=== PATIENT | male | born 1945 | race Caucasian/White ===

== ENCOUNTER 2018-09-26 05:46 | Inpatient (IN) ==
[2018-09-26] MEDS ORDERED: Lactated Ringers 2,000 ML PRIMARY IV ONE ×2 (05:54→18:50)
[2018-09-26] MEDS ORDERED: Vancomycin Inj 1gm vial ONE ×2 (05:54→06:42)
[2018-09-26] MEDS ORDERED: ceFAZolin Inj 2gm (Premix) 0 GM/0 ML BAG IV ONE (05:54)
[2018-09-26] MEDS ORDERED: Sodium Chloride 0.9% 250 ML ONE ×2 (05:56→07:08)
[2018-09-26] MEDS ORDERED: LIDOCAINE W/ SODIUM BICARB 0.5 ML SYR SUBD ONE (06:00)
[2018-09-26] MEDS ORDERED: ceFAZolin Inj 2gm (Premix) 2 GM/50 ML BAG IV ONE (06:00)
[2018-09-26] MEDS ORDERED: Nasal Sanitizer POPSWAB ampule 3 AMP (Nozin) PREOP DOSE ENOS SCH (06:00)
[2018-09-26] MEDS ORDERED: BACITRACIN 50,000 UNIT VIAL IRRIG ONE ×2 (06:42→13:15)
[2018-09-26] MEDS ORDERED: Sodium Chloride 0.9% vial 50 ML ONE (06:42)
[2018-09-26] MEDS ORDERED: Gentamicin Inj 40 MG/ML VIAL ONE (06:42)
[2018-09-26] MEDS ORDERED: HYDROmorphone 2 MG/1 ML ONE ×3 (06:43→14:19)
[2018-09-26] MEDS ORDERED: REMIFENTANIL HCL 2 MG VIAL IV ONE ×4 (06:43→13:44)
[2018-09-26] MEDS ORDERED: MIDAZOLAM 5 MG/1 ML ONE (06:43)
[2018-09-26] MEDS ORDERED: fentaNYL Inj 250 MCG/5 ML VIAL ONE (06:43)
[2018-09-26] MEDS ORDERED: Propofol 1,000 MG/100 ML VIAL IV ONE ×8 (06:45→16:58)
[2018-09-26] MEDS ORDERED: LIDOCAINE MPF 2% - 5 ML (20 MG/1 ML) ONE (06:45)
[2018-09-26] MEDS ORDERED: KETAMINE 100 MG/1 ML - 5 ML ONE (06:45)
[2018-09-26] MEDS ORDERED: ROCURONIUM 10 MG/1 ML - 5 ML VIAL IVP ONE (06:46)
[2018-09-26] MEDS: Lactated Ringers 1,000 ML PRIMARY IV ONE ×2 (06:48→06:50)
[2018-09-26] MEDS ORDERED: Sodium Chloride 0.9% vial 20 ML ONE (06:57)
[2018-09-26] MEDS ORDERED: ePHEDrine Inj 50 MG/ML AMP ONE (06:57)
[2018-09-26] MEDS ORDERED: BUPIVACAINE 0.25% W/ EPI - 10 ML VIAL ONE (06:57)
[2018-09-26] MEDS ORDERED: [UNRECOGNIZED DRUG - OTHER] EACH EYE PRN (07:08)
[2018-09-26] MEDS ORDERED: FAMOTIDINE 20 MG/2 ML VIAL IVP ONE (07:33)
[2018-09-26] MEDS ORDERED: CITRIC ACID/SODIUM CITRATE 30 ML CUP PO ONE (07:33)
[2018-09-26] MEDS ORDERED: Acetaminophen 1000mg Inj 1,000 MG/100 ML VIAL IV ONE (07:36)
[2018-09-26] MEDS ORDERED: ceFAZolin Inj 3 GM in Sodium Chloride 0.9% 100 ML IV ONE (07:45)
[2018-09-26] MEDS ORDERED: LIDOCAINE HCL 2 % 10 ML JELLY URO-JECT TOPICAL ONE ×2 (07:54→09:04)
[2018-09-26] MEDS ORDERED: GLYCOPYRROLATE 0.2 MG/1 ML VIAL ONE (08:23)
[2018-09-26] MEDS ORDERED: Lactated Ringers 1,000 ML PRIMARY IV ONE ×5 (08:35→21:19)
[2018-09-26] MEDS ORDERED: ceFAZolin 1 GM VIAL ONE ×2 (11:15→17:26)
[2018-09-26] MEDS ORDERED: Sodium Chloride 0.9% 500 ML ONE ×2 (11:16→12:49)
[2018-09-26] MEDS ORDERED: Sodium Chloride 0.9% 0 ML PRIMARY IV ONE (11:27)
[2018-09-26] MEDS ORDERED: Sodium Chloride 0.9% vial 30 ML ONE (13:15)
[2018-09-26] MEDS ORDERED: DEXAMETHASONE PF 10 MG/1 ML VIAL ONE (14:27)
[2018-09-26] MEDS ORDERED: PROPOFOL 10 MG/1 ML (200 MG/20 ML) VIAL IV ONE ×3 (19:03→20:31)
[2018-09-26] MEDS ORDERED: BUPivacaine Inj 0.25% PF - 10ml vial ONE (19:27)
[2018-09-26] MEDS ORDERED: BUPivacaine Liposome/PF (Exparel) Inj 20ml vial INFIL ONE (19:27)
--- NOTE | 2018-09-26 21:08 | GEN.OPNOTE ---
Operative Note Surgery Date: 09/26/18 Preoperative Diagnosis: 1.) Chronic severe low back pain. 2.) Symptomatic lumbar stenosis/neurogenic claudication. 3.) Multilevel advanced lumbar degenerative disc disease. 4.) Multilevel advanced lumbar facet arthropathy/hypertrophy. 5.) Severe central canal stenosis L5-S1. 6.) Severe bilateral lateral recess stenosis L5-S1. 7.) Severe bilateral neuroforaminal stenosis L5-S1. 8.) S/P L3-4 and L4-5 anterior lumbar interbody fusion. Postoperative Diagnosis: 1.) Chronic severe low back pain. 2.) Symptomatic lumbar stenosis/neurogenic claudication. 3.) Multilevel advanced lumbar degenerative disc disease. 4.) Multilevel advanced lumbar facet ar thropathy/hypertrophy. 5.) Severe central canal stenosis L5-S1. 6.) Severe bilateral lateral recess stenosis L5-S1. 7.) Severe bilateral neuroforaminal stenosis L5-S1. 8.) Extruded synovium L5-S1 bilaterally. 9.) S/P L3-4 and L4-5 anterior lumbar interbody fusion. Procedure: 1.) Partial L5 laminectomy with medial facectomies and foraminotomies bilaterally for decompression of severe central canal, lateral recess, and neuroforaminal stenosis. (CPT code: 98971). 2.) Partial S1 laminectomy with medial facetectomies and foraminotomies bilaterally for decompression of severe central canal, lateral recess, and neuroforaminal stenosis. (CPT code: 85462). 3.) Posterolateral arthrodesis, T10-T11 bilaterally in preparation for posterolateral fusion. (CPT code: 01016). 4.) Posterolateral arthrodesis, T11- T12 bilaterally in preparation for posterolateral fusion. (CPT code: 70819). 5.) Posterolateral arthrodesis, T12-L1 bilaterally in preparation for posterolat eral fusion. (CPT code: 29977). 6.) Posterolateral arthrodesis, L1-2 bilaterally in preparation for posterolateral fusion. (CPT code: 63225). 7.) Posterolateral arthrodesis, L2-3 bilaterally in preparation for posterolateral fusion. (CPT code: 26860). 8.) Posterolateral arthrodesis, L3-4 bilaterally in preparation for posterolateral fusion. (CPT code: 928373). 9.) Posterolateral arthrodesis, L4-5 bilaterally in preparation for posterolateral fusion. (CPT code: 95838). 10.) Posterolateral arthrodesis, L5-S1 bilaterally in preparation for posterolateral fusion. (CPT code: 30510). 11.) Segmental instrumentation, T10-S1 using Shorty Alo 3 pedicle screw and shelia posterolateral thoracic/lumbar instrumentation system. (CPT code: 97032). 12.) Use of two medium [employer] INFUSE bone morphogenic protein (allograft), 60 cc of [employer] BIO DBM Plus putty with cancellous (allograft), 120 cc of cancellous bone chips (allograft) for posterolateral fusion. (CPT code: 38314). 13.) Use of autograft, harvested from the same incision, cleaned of soft tissue and morselized for posterolateral fusion. (CPT code: 23356). 14.) Use of the [employer] computer assisted neuronavigation system for the cannulization of the T10, T11, T12, L2, L3, L4, L5, and S1 pedicles bilaterally for the subsequent placement of the pedicle screws at these levels. (CPT code: 49900). 15.) Use of intra-operative fluoroscopy for confirmation of correct surgical levels and for final confirmation of the position of the posterolateral hardware elements. 16.) Use of intra-operative neuromonitoring including free running EMG's, triggered EMG's, and SSEP's. Surgeon: Sherif Spencer MD Assistant Farm Operations Manager: ROGELIO Ray Anesthesia Provider: Alta Malik CRNA Anesthesia Type: General Estimated Blood Loss (mL): 1,800 Fluids: See anesthesia record Pathology: None Indications: Mr. Zuniga is a 73-year-old gentleman, patient well-known to me, who underwent an L3-4 and L4-5 anterior lumbar interbody fusion. He was to undergo in a staged fashion, several days later, a T10 to S1/ilial fusion, however, this procedure was never performed because Mr. Zuniga developed a postoperative infection with a draining seroma from his anterior surgery and then developed a pulmonary embolus without DVT, which required him to be anticoagulated for a full year. More recently, Mr. Zuniga has presented to my new [facility] practice wishing to proceed with the second portion of that procedure, the T10-S1/ilial fusion. Mr. Zuniga continues to have the significant back pain, constant 7/10 with symptoms of neurogenic claudication but without radicular symptoms. He had a previous lumbar myelogram with post-myelogram CT as well as a more recent study that demonstrated severe multillevel lumbar degenerative disc disease with multilevel advanced facet arthropathy and hypertrophy. The studies demonstrated bilateral pars defects at L5-S1, with vertebral body slip at this level and severe central canal, bilateral lateral recess, and bilateral neuroforaminal stenosis. Findings: 1.) Severe L5-S1 central canal stenosis secondary. 2.) Severe L5-S1 lateral recess stenosis bilaterally. 3.) Severe L5-S1 neuroforaminal stenosis bilaterally. 4.) Loose right superior S1 articulating facet. 5.) Extruded synovium L5-S1 bilaterally. Complications: None Operative Summary: Mr. Zuniga was brought back to the preoperative area. His surgical history and physical was updated. The procedure to be performed was confirmed with Mr. Zuniga and we were in agreement on the procedure to be performed and this matched what was written on the patient's consent form. Any questions that Mr. Zuniga and his or his brother had were answered before he was taken back to the operating room suite. Mr. Zuniga was brought back to the operating room suite. He was put under general anesthesia and intubated by the anesthesia staff. He had a Carter catheter placed in his bladder for the procedure. He had pneumatic compression hose placed on his lower legs bilaterally. Mr. Hurd was carefully rolled over onto the Ralph surgical table with his arms gently positioned upwards with his shoulders abducted less than 90. HIs arms were padded with foam padding on top of the padding the surgical armboards. The region of his chest and axilla was checked bilaterally to make sure that there were no pressure points over the region of the brachial plexus bilaterally. His nipples were checked be below the chest pad of the Ralph table with no pressure points. All bony prominences were well padded. His Carter catheter was checked be free from kinks. His pneumatic compression hose was attached and pneumatic compression device. The C-arm fluoroscopy unit was used to help localize the skin incision for the approach to the intended surgical levels. The intended skin incision was marked with a skin marker with several crosshatches. Mr. Hurd was prepped and draped in the usual and standard fashion. He was given 3 g of Ancef and a gram of vancomycin IV for perioperative antibiosis. He was given 10 mg of Decadron IV. A standard surgical timeout was performed identifying the correct patient, the patient's symptoms, the correct procedure, and the correct equipment being available for the procedure. The intended skin incision was injected subcutaneously cutaneously with quarter percent Marcaine with 1 in 200,000 epinephrine. The skin was incised with a 10 blade scalpel and all dermal and superficial bleeding points were coagulated with bipolar cautery. Dissection was continued through the subcutaneous tissue down to the thoracolumbosacral fascia. The subcutaneous fatty tissue was dissected back, lateral from the midline, to assist with the identification of the fascial layer for closure portion of the procedure. The fascia was incised along the borders of the spinous processes with Bovie cautery and subperiosteal dissection was performed down the spinous processes and out over the lamina. When the inferior aspect of a lumbar lamina was identified a Canton 4 instrument was placed underneath the lamina and the level was localized with lateral fluoroscopy. Continued subperiosteal dissection was performed exposing from the inferior aspect of the T9 lamina to the sacrum bilaterally. Dissection was taken out laterally over the facet joints at each level and out laterally over the transverse processes from T10-L5 and out laterally over the sacral alar bilaterally. The soft tissue was dissected from the posterior aspect of the spine using the Bovie cautery and a large Leksell rongeur rongeur. Extensive decortication was performed of the T10-L5 lamina, facet joints, and T10-L5 tranverse processes, and the sacrum and sacral alar bilaterally using the high speed [employer] Oscar drill with a matchstick bit. The bone dust created was collected and saved to be used as autograft for the fusion portion of the procedure. The [employer] navigation reference arc was then securely attached to the L3 spinous process and a spin was performed with the [facility] 3-D fluoroscopy unit. The Dojo neuro navigation pedicle finder was then used to cannulate the T11,T12, and L2 levels bilaterally. Several careful attempts were made to cannulate the L1 pedicles with the Dojo neuro navigation pedicle finder, however due to the very small size of this pedicle based on imaging, and it was found to be sclerotic and trying to cannulate the pedicle after drilling a aerial applicator pilot hole using neuro navigation guidance, it was felt that further attempts to cannulate the pedicle would only fracture the pedicle or result in potential dural or nerve root injury. Therefore was decided not to proceed with further attempts to cannulate the pedicle in an attempt to place a pedicle screw at this level. The internal aspects of the T11,T12, and L2 pedicles were palpated internally with a small ball-tip instrument. The pedicles of T11 and L2 were known to be quite small so these pedicles were not tapped, but the T12 pedicle being somewhat larger was tapped with a Alo 3 4.5 mm tap bilaterally. The internal aspect of the T12 pedicles were palpated again with a small ball-tip instrument. The pedicle screws were then placed. 4.5 x 45 mm pedicle screws were placed into the T11 and L2 pedicles bilaterally. 5.5 x 55 millimeter pedicle screws were placed into the T12 pedicles bilaterally. The pedicle screws obtained good purchase in the pedicle and vertebral body bone at each level bilaterally. Another spin was performed with the 3-D fluoroscopy unit to localize the T10 pedicles with reference to the Dojo neuro navigation reference arc such that these pedicles could be cannulated with computer-assisted guidance. The Dojo neuro navigation pedicle finder was then used to cannulate the T10 pedicles bilaterally. The internal aspect of the pedicles were palpated with a small ball-tip instrument. The T10 pedicles, like the T12 pedicles, were somewhat larger and therefore they were tapped with the Shorty Alo 3 4.5 mm tap. The internal aspect of the T10 pedicles were palpated with the small-tip instrument. 5.5 x 55 mm pedicle screws were placed into the T10 pedicles bilaterally. The pedicle screws obtained good purchase in the pedicle and vertebral body bone bilaterally. All pedicle screws placed to this point interrogated with triggered EMGs. The high impedance of the pedicle screws that were not in close proximity to nerve structures. The placement of the T11, T12, and L2 pedicle screws were confirmed with the spin that had been performed to cannulate the T10 pedicles. The pedicle screws were demonstrated to be within the confines of the pedicles at each level and tho be bicortical or nearly bicortical in placement as intended. The placement of the T10 pedicle screws were confirmed with another spin with the 3D fluoroscopy unit. The [place] neuronavigation reference arc was placed on the spinous process of T12 and another spin was performed with the 3D fluoroscopy unit. The pedicles of L3, L4, L5 and S1 were then cannulated with the [place] neuronavigation pedicle finder. The internal aspects of the pedicles were palpated with a small ball tip instrument. The pedicles were all tapped with the appropriate size [employer] Alo 3 pedicle tap. The internal aspect of the pedicles were again palpated with a small ball tip instrument. The pedicle screws were then placed. 6.5 x 65 mm pedicle screws were placed into the L3 pedicles bilaterally. A 6.5 x 60 mm pedicle screw was placed into the L4 pedicle on the left and a 6.5 x 55 mm pedicle screw was placed into the L4 pedicle on the right. A 6.5 x 65 mm pedicle screw was placed into the L5 pedicle on the left, and a 6.5 x 55 mm pedicle screw was placed into the L5 pedicle on the right. An 8.5 x 60 mm pedicle screw was placed into the S1 pedicle on the left and a 7.5 x 60 mm pedicle screw was placed into the S1 pedicle on the right. The pedicle screws obtained good purchase in the pedicle and vertebral body bone at each level. The pedicle screws were all interrogated with triggered EMG's and all demonstrated sufficiently high impedance indicating that the were not in close proximity to nerve structures. Another spin with the 3D fluoroscopy unit confirmed that the pedicles were within the confines of the pedicles at each level and that they were either bicortical or nearly bicortical in purchase as intended. At this point, it was decided to not place iliac bolts as the screws at the S1 level were quite robust and had excellent purchase. It was felt that the risks of further anesthesia time and blood loss with an already extensive surgery outweighed any potential benefit from the additional purchase to the ilium as again excellent purchase was obtained in the sacrum with large diameter, long pedicle screws, with bilateral cortical purchase. Attention was turned to the decompression at L5-S1. Partial laminectomies of L5 and S1 were performed with medial facetectomies and foraminotomies bilaterally. Surgical findings included severe central canal and severe bilateral lateral recess and neuroforaminal stenosis secondary to extreme bony arthropathy and hypertrophy of the facet joints and thickening of the ligamentum flavum. The superior articulating facet of S1 on the right was found to be loss from bony attachment but heavily tethered in the canal adjacent and adherent to the dura from extruded synovium and fibrous tissue. There was extruded synovial tissue in the lateral recesses bilaterally adherent to the dura. The bony arthopathy, ligamentous hypertrophy, and extruded synovial tissue, and any loose bone encountered were removed with the high speed [employer] Oscar drill, and a variety or Kerrison punches, and pituitary ronguers. Excellent decompression of the canal, lateral recesses, neuroforamen, and of the thecal sac, and exiting L5 nerve roots, and transversing S1 nerve roots was assured both by visual inspection and by palpation around the bony structures and nerves with a [place]itt instrument. The soft tissue adjacent to the transversing S1 nerve root on the left was carefully dissected with a Canton 4 instrument. The L5-S1 disc space was identified. A Reginald'Pb nerve root retractor was used to carefully retract the thecal sac and the transversing S1 nerve root. Epidural veins over the disc space were coagulated with bipolar cautery turned down to a low level and cut with a microsissors. The disc space was incised with a 15 blade scalpel and a fragment of disc was removed with a pituitary ronguer. The disc space was markedly collapsed which was confirmed with the placement of the Canton 4 instrument into the disc space and with even the smallest disc space shaver not being able to be placed in the disc space, it was decided to not perform an interbody fusion at this level as the level was already essentially bone on bone, and it was felt that any further attempt at interbody fusion would likely disrupt the intergrity of the endplates, and because of the depth of the surgical site at this level and the angle of the L5-S1 disc space, the risk of dural or nerve root injury would be very high. Attention was turned back to the instrumentation portion of the procedure. Two 6.0 titanium alloy rods were cut to the appropriate length and bent into the appropriate lumbar lordosis and thoracic kyphosis. The rods were placed into the tulips of the pedicle screws from T10-S1 bilaterally and set screws were placed over the rods in the tulips of the pedicle screws which were tightened hand tight. The set screws were then all tightened to their final tightness using the torque/countertorque device. The surgical site was irrigated with a bottle of hydrogen peroxide. The surgical site was then pulse-lavaged with 6 liters of vancomycin/bacitracin/gentamicin solution. Two medium [employer] INFUSE strips (allograft) were cut lengthwise into smaller strips. These were then placed bilaterally over the decorticated lamina's of T10-L5, medial to the hardware elements, and at L5-S1 were placed lateral to the hardware elements over the L5 transverse processes and the sacral alar bilaterally. 120 cc of cancellous chips (allograft) were placed lateral and medial to the hardware construct over the transverse processes of T10 to L5 and the sacral alae bilaterally, and from theT10 lamina to the L5 lamina bilaterally. 60 cc of Dojo BIO DBM Plus Putty with cancellous (allograft) was then placed medial and lateral to the hardware elements bilaterally, over the cancellous bone chips. The canal and lateral recesses at L5-S1 were inspected for any bone chips. Any identified were removed. The canal and lateral recesses were irrigated witha small amount of bacitracin irrigation which was removed by suction. Ronak-Seal hemostatic agent was placed over all exposed dural elements. A piece of gelfoam was placed across the canal. Two medium hemovac drains were placed in the surgical site. The closure portion of the procedure was begun. The fascial layer was closed tightly with #1 Vicryl suture in an interrupted fashion. The surgical site was irrigated again with bacitracin irrigation. The deep subcutaneous tissue and fascia was re-approximated with 2-0 Vicryl suture in an interrupted fashion. A more superficial layer of the subcutaneous tissue was re-approximated with 2-0 Vicryl suture in an interrupted fashion. The dermis and superficial subcutaneous tissue was re-approximated with 3-0 Vicryl suture in an inverted interrupted fashion. The Ioban drape was pulled back from the skin edges and the final layer of closure was performed with stainless steel mil. The incision was cleansed with a bacitracin soaked sponge and dried with a sterile dry sponge. The incision was dressed with a Mepilex dressing. The surgical drains were secured with suture. The drain sites were dressed. All surgical drapes were removed. Mr. Zuniga was carefully rolled over onto the PACU stretcher. He was awoken and extubated by the anesthesia staff. He was taken to the recovery room in stable condition. All surgical counts were reported as correct by the scrub and circulating personel. A Physician's Assistant Farm Operations Manager, Ms. Funmi Lopez PA-C, assisted with the procedure including the exposure and closure portions of the procedure. She provided irrigation and suctioning throughout the procedure.
[2018-09-26] MEDS ORDERED: NALOXONE 0.4 MG/1 ML VIAL ONE (21:15)
--- NOTE | 2018-09-26 21:40 | CRNA.PROGR ---
Anesthesia Time - Procedure/Recovery Time Start Date: 09/26/18 End Date: 09/26/18 Anesthesia : Time In: 07:38 Anesthesia : Time Out: 21:30 Anesthesia : Total Time: 832 - Total Anesthesia Time Total Anesthesia Time (minutes): 832 - Other Weight: 122.47 kg Height: 6 ft Body Mass Index (BMI): 36.6 Physical Status: P3 Anesthesia Type: General Anesthesia : ET
--- NOTE | 2018-09-26 21:40 | CRNA.PROGR ---
Anesthesia Recovery Phase I - Post Anesthesia Evaluation Patient's Condition on Arrival in Phase I: Stable Pain Level: 0
[2018-09-26 21:42] LABS: Hemoglobin [HGB] 11.6 g/dL (14.0-18.0)
[2018-09-26] MEDS ORDERED: MORPHINE SULFATE 2 MG/1 ML IVP PRN ×2 (22:33→23:56)
[2018-09-26] MEDS ORDERED: Ondansetron ODT Tab 4 MG TAB PO PRN (22:33)
[2018-09-26] MEDS ORDERED: MAGNESIUM CITRATE 296 ML SOLUTION PO PRN (22:33)
[2018-09-26] MEDS ORDERED: PROMETHAZINE 25 MG/1 ML VIAL IM PRN (22:33)
[2018-09-26] MEDS ORDERED: ONDANSETRON 4 MG/2 ML VIAL IVP PRN (22:33)
[2018-09-26] MEDS ORDERED: BISACODYL 5 MG TABLET PO PRN (22:33)
[2018-09-26] MEDS ORDERED: MAGNESIUM 400 MG/5 ML - 30 ML (MILK OF MAGNESIA) PO PRN (22:33)
[2018-09-26] MEDS ORDERED: Metoclopramide Inj 10 MG/2 ML VIAL IVP PRN (22:33)
[2018-09-26] MEDS ORDERED: Vancomycin-PHA to Dose IV SCH (22:33)
[2018-09-26] MEDS ORDERED: oxyCODONE-ACETAMINOPHEN 5-325 TAB PO PRN (22:33)
[2018-09-26] MEDS ORDERED: Prochlorperazine Edisylate Inj 10mg/2ml vial IVP PRN (22:33)
[2018-09-26] MEDS ORDERED: oxyCODONE/APAP 7.5/325 Tab 1 TAB TAB PO PRN (22:33)
[2018-09-26] MEDS ORDERED: Fleet Enema 133ml RECTAL PRN (22:33)
[2018-09-27] MEDS: Acetaminophen 1000mg Inj 1,000 MG/100 ML VIAL IV PRN (00:39)
[2018-09-27] MEDS ORDERED: HYDROmorphone 2 MG/1 ML IVP PRN (00:48)
[2018-09-27] MEDS: DIAZEPAM 10 MG TABLET PO PRN ×2 (00:52→08:22)
[2018-09-27] MEDS ORDERED: HYDROmorphone 2 MG/1 ML ONE (01:01)
[2018-09-27] MEDS: ceFAZolin Inj 1 GM in Sodium Chloride 0.9% 100 ML IV SCH ×2 (01:35→08:49)
[2018-09-27] MEDS: oxyCODONE/APAP 10/325 Tab 1 EACH TAB PO PRN ×2 (01:58→05:55)
[2018-09-27 05:11] LABS: BASOPHILS # (AUTO) 0.01 10*3/UL; BASOPHILS % (AUTO) 0.1 % (0-1); EOSINOPHILS # (AUTO) 0 10*3/UL; EOSINOPHILS % (AUTO) 0 % (0-8); Hematocrit [HCT] 34.4 % (42.0-52.0); Hemoglobin [HGB] 11.7 g/dL (14.0-18.0); LYMPHOCYTES # (AUTO) 0.47 10*3/uL; MEAN CORPUSCULAR HEMOGLOBIN 29.5 PG (27-31); MEAN CORPUSCULAR VOLUME 86.6 FL (80-90); MEAN PLATELET VOLUME 9.3 FL (7.4-12.2); MONOCYTES % (AUTO) 5.4 % (5-15); NEUTROPHILS # (AUTO) 11.84 10*3/UL; NEUTROPHILS % (AUTO) 90.7 % (50-80); RED BLOOD COUNT 3.97 10^6/uL (4.70-6.10)
[2018-09-27] MEDS ORDERED: LEVOTHYROXINE SODIUM 100 MCG PO SCH (05:30)
[2018-09-27 05:42] LABS: PLATELET MORPHOLOGY COMMENT NORMAL MORPHOLOGY (NORM); RBC MORPHOLOGY COMMENT NORMAL MORPHOLOGY (NORM); WBC MORPHOLOGY COMMENT NORMAL MORPHOLOGY (NORM)
[2018-09-27 05:44] LABS: BLOOD UREA NITROGEN 20 mg/dL (7-22)
--- NOTE | 2018-09-27 06:28 | NEURO.PROG ---
Subjective Post Op Day: 1 Gusman Catheter: Yes Flatus: No Diet: Regular Ambulating: No Additional Details: Dr. Spencer rounded this morning and examined Mr. Zuniga. His strength is good bilaterally with dorsi and plantar flexion. He does not complain of any numbness and tingling in his feet or legs, but he is quite distracted by the gusman catheter. (Bladder scan shows minimal bladder content). He is having surgical site pain, but tolerated assisted reposition to dangle on the side of the bed for a brief period. Pressure areas on his chest from surgery are improved. Plan for pain management and maintain pulse oximetry. Drainage from combined drains is 295ml since surgery and his H&H are stable from immediate post op. Dressing is dry and intact. Plan for today is for pain management and up in room as tolerated. He is taking POs without difficulty. I will see Mr. Zuniga again this afternoon. Objective : Data - Labs CBC and BMP: 09/27/18 04:25 09/27/18 04:25 - Vital Signs Vital Signs and I&O: Vital Signs - Last Taken Temperature 96.9 F 09/27/18 01:23 Pulse Rate 94 09/27/18 01:23 Respiratory Rate 20 09/27/18 01:23 Blood Pressure 133/86 09/27/18 01:23 Pulse Ox 97 09/27/18 04:30 Intake and Output (24hr x 4 totals) 09/25/18 09/26/18 09/27/18 09/28/18 05:59 05:59 05:59 05:59 Intake Total 7800 / 7800 Output Total 3790 / 3790 Balance 4010 / 4010
[2018-09-27] MEDS: HYDROCHLOROTHIAZIDE 25 MG TABLET PO SCH (07:11)
[2018-09-27] MEDS: PANTOPRAZOLE 40 MG TABLET PO SCH (07:12)
[2018-09-27] MEDS ORDERED: CALCIUM CARBONATE 500 MG (TUMS) CHEWABLE TABLET PO PRN (07:42)
--- NOTE | 2018-09-27 08:01 | EKG ---
[address] [address] Measurements Intervals [place] Rate: 116 P: 56 KS: 131 QRS: 81 QRSD: 129 T: 16 QT: 341 QTc: 410 Interpretive Statements SINUS TACHYCARDIA WITH OCCASIONAL VENTRICULAR PREMATURE COMPLEXES RIGHT BUNDLE BRANCH BLOCK [120+ ms QRS DURATION, UPRIGHT V1, 40+ ms S IN I/aVL/V4/V5/V6] No previous ECG available for comparison Electronically Signed On 09-27-18 08:10:47 MST by Romeo Thornton MD [email or web address]
[2018-09-27] MEDS: Multivitamin Tab 1 TAB PO SCH (08:47)
[2018-09-27] MEDS: oxyCODONE ER Tab 20 MG TAB PO SCH ×2 (08:48→21:16)
[2018-09-27] MEDS: LISINOPRIL 10 MG TABLET PO SCH (08:48)
--- NOTE | 2018-09-27 09:11 | CRNA.PROGR ---
Anesthesia Note - Progress Notes Anesthesia Progress Note: Mr. Zuniga is sitting up in bed eating toast at the time of visit. He has some surgical site pain and is tolerating his po pain medication at this time. The red area across his chest from the lengthy prone positioning is improved from his PACU time. Vital signs have been stable and he has no questions at this time regarding his anesthetic course. Laboratory Results 09/25/18 09/26/18 09/27/18 16:15 21:41 04:25 WBC 13.04 H RBC 3.97 L Hgb 11.6 L 11.7 L Hct 35.0 L 34.4 L MCV 86.6 MCH 29.5 MCHC 34.0 RDW Std Deviation 41.9 RDW Coeff of Aubrie 13.5 Plt Count 170 MPV 9.3 Immature Gran % (Auto) 0.2 Neut % (Auto) 90.7 H Lymph % (Auto) 3.6 L [place] % (Auto) 5.4 Eos % (Auto) 0 Baso % (Auto) 0.1 Immature Gran # (Auto) 0.02 Neut # (Auto) 11.84 Lymph # (Auto) 0.47 [place] # (Auto) 0.70 Eos # (Auto) 0 Baso # (Auto) 0.01 WBC Morphology Comment Normal morphology Plt Morphology Comment Normal morphology RBC Morph Comment Normal morphology Sodium Potassium Chloride Carbon Dioxide Anion Gap BUN Creatinine BUN/Creatinine Ratio Glucose Calculated Osmolality Calcium Troponin I Blood Type A POSITIVE Antibody Screen Negative Crossmatch See Detail 09/27/18 09/27/18 04:25 07:50 WBC RBC Hgb Hct MCV MCH MCHC RDW Std Deviation RDW Coeff of Aubrie Plt Count MPV Immature Gran % (Auto) Neut % (Auto) Lymph % (Auto) [place] % (Auto) Eos % (Auto) Baso % (Auto) Immature Gran # (Auto) Neut # (Auto) Lymph # (Auto) [place] # (Auto) Eos # (Auto) Baso # (Auto) WBC Morphology Comment Plt Morphology Comment RBC Morph Comment Sodium 138 Potassium 4.7 Chloride 106 Carbon Dioxide 21 L Anion Gap 11 BUN 20 Creatinine 1.0 BUN/Creatinine Ratio 20.00 Glucose 163 H Calculated Osmolality 292.0 Calcium 8.3 L Troponin I 0.062 H Blood Type Antibody Screen Crossmatch Vital Signs (24 hrs) 09/26/18 21:25 09/26/18 21:30 11/28/18 21:35 Temperature 96.8 F Pulse Rate 70 70 66 Pulse Rate [Apical] Pulse Rate [Pulse Oximeter] Respiratory Rate 20 20 18 Blood Pressure 147/91 142/90 148/92 Blood Pressure [Right Arm] Pulse Ox 97 100 99 09/26/18 21:45 09/26/18 21:55 09/26/18 22:05 Temperature 96.9 F Pulse Rate 64 64 67 Pulse Rate [Apical] Pulse Rate [Pulse Oximeter] Respiratory Rate 20 20 20 Blood Pressure 148/99 148/90 151/92 Blood Pressure [Right Arm] Pulse Ox 100 100 99 09/26/18 22:15 09/26/18 22:25 09/26/18 22:40 Temperature 97 F 97.2 F Pulse Rate 71 72 73 Pulse Rate [Apical] Pulse Rate [Pulse Oximeter] Respiratory Rate 20 20 20 Blood Pressure 135/96 130/89 115/89 Blood Pressure [Right Arm] Pulse Ox 99 95 96 09/26/18 22:55 09/26/18 23:10 09/26/18 23:36 Temperature 96.5 F L 96.2 F L 96.6 F L Pulse Rate Pulse Rate [Apical] Pulse Rate [Pulse Oximeter] 79 80 81 Respiratory Rate 20 20 20 Blood Pressure Blood Pressure [Right Arm] 133/66 170/90 126/85 Pulse Ox 97 98 94 09/26/18 23:40 09/26/18 23:55 09/27/18 00:05 Temperature 96.6 F L 96.7 F L Pulse Rate Pulse Rate [Apical] Pulse Rate [Pulse Oximeter] 86 90 Respiratory Rate 20 22 22 Blood Pressure Blood Pressure [Right Arm] 128/84 132/90 Pulse Ox 95 98 09/27/18 00:08 09/27/18 00:35 09/27/18 01:23 Temperature 96.7 F L 96.9 F 96.9 F Pulse Rate Pulse Rate [Apical] Pulse Rate [Pulse Oximeter] 90 98 94 Respiratory Rate 22 20 20 Blood Pressure Blood Pressure [Right Arm] 132/90 150/92 133/86 Pulse Ox 98 99 97 09/27/18 04:15 09/27/18 04:30 09/27/18 06:55 Temperature 97.9 F Pulse Rate Pulse Rate [Apical] 110 H Pulse Rate [Pulse Oximeter] 105 H Respiratory Rate 24 Blood Pressure Blood Pressure [Right Arm] 161/95 Pulse Ox 96 97 09/27/18 08:40 Temperature 97.8 F Pulse Rate Pulse Rate [Apical] Pulse Rate [Pulse Oximeter] 101 H Respiratory Rate 28 H Blood Pressure Blood Pressure [Right Arm] 163/96 Pulse Ox 97 Intake and Output - 8hr Totals Only 09/26/18 09/26/18 09/27/18 09/27/18 13:59 21:59 05:59 13:59 Intake Total 7300 / 7800 500 / 7800 Output Total 2945 / 3790 845 / 3790 300 / 300 Balance 4355 / 4010 -345 / 4010 -300 / -300
[2018-09-27] MEDS: Metoprolol TARTRATE Tab 50 MG TAB PO SCH (09:15)
[2018-09-27] MEDS: oxyCODONE IR Tab 15 MG, oxyCODONE IR Tab 5 MG PO PRN ×4 (12:12→16:46)
--- NOTE | 2018-09-27 13:02 | PDOC ---
HPI - History of Present Illness Date of Service: 09/27/18 Time of Service: 09:00 Chief Complaint: Back surgery History of Present Illness: This very pleasant 73-year-old male who presented for back surgery with Dr. Spencer yesterday. Please see his surgical note regarding the procedure. The patient had had long-standing low back pain with several issues that needed to be addressed neurosurgically. This is well detailed in the clinical notes. The hospital service is asked to help advise on anticoagulation in the setting of prior pulmonary embolism/DVT in relation to back surgery in the past. The patient is completed approximately a year of therapy to my understanding. He has other medical problems including hypertension and hypothyroidism and hypercholesterolemia. He denies any shortness of breath currently. He had some chest pain this morning and he thought it was his heart but his EKG showed sinus tachycardia on my review with occasional PVC and he had a minimally elevated troponin. I have another one being drawn now on a stat basis. The patient denies any cardiac chest pain or exertional chest pain but is very tender to palpation consistent with costochondritis and he has a fairly large red area from chest from being prone for his surgery yesterday. He had pain overnight, although not chest pain. He described that his back pain postoperatively. In some adjustments were made to his pain medications. The hospital service is being asked to advise on medical issues throughout the patient's hospital stay i n relation to his recent back surgery yesterday. Past Medical History Medical History: 1. Hypertension. 2. Hypercholesteremia. 3. Hypothyroidism. 4. Chronic low back pain. 5. History of pulmonary/DVT post prior back surgery Surgical History: 1. Back surgeries. 2. Cholecystectomy. 3. Right knee replacement Pertinent Family History: No significant family history of heart disease Past Social History: . Lives in [place], [place]. Has children. Does not smoke or drink. Tobacco Use: Never Smoker In the Past 12 Months, Have Used or Abuse Any of the Following Substance: None Alcohol Use: None Medication / Allergies Home Medications: Home Medications Medication Instructions Recorded Confirmed Type apixaban 5 mg tablet 5 mg PO BID 06/22/18 09/26/18 History hydrochlorothiazide 25 mg tablet 25 mg PO QDAY 06/22/18 09/26/18 History levothyroxine 100 mcg capsule 100 mcg PO QDAY 06/22/18 09/26/18 History lisinopril 10 mg tablet 10 mg PO QDAY 06/22/18 09/26/18 History metoprolol tartrate 50 mg tablet 50 mg PO QDAY tab 06/22/18 09/26/18 History simvastatin 20 mg tablet 20 mg PO QPM 06/22/18 09/26/18 History glucosamine-chondroitin 250 mg-200 1 tab PO QPC tab 08/27/18 09/26/18 History mg tablet multivitamin,ih-afge-vndnhaqx 1 tab PO QDAY 08/27/18 09/26/18 History tablet Allergies/Adverse Reactions: Allergies Allergy/AdvReac Type Severity Reaction Status Date / Time No Known Allergies Allergy Verified 09/26/18 06:16 Review of Systems - Respiratory Respiratory: REPORTS: Negative System Review - Cardiovascular Cardiovascular: REPORTS: Chest Pain (Had chest pain this morning that he thought might be his heart. He states that's gone now. He is very tender to palpation with large red keny across his chest.) - Gastrointestinal Gastrointestinal / Abdominal: REPORTS: Negative System Review Exam - Vitals Vital Signs: Vital Signs Temperature 97.7 F Temperature Source Temporal Artery Scan Pulse Rate [Apical] 110 Pulse Rate [Pulse Oximeter] 90 Pulse Rate 73 Respiratory Rate 28 Blood Pressure [Right Arm] 129/85 Blood Pressure 115/89 Pulse Ox 94 Oxygen Flow Rate 2 Oxygen Delivery Method Nasal Cannula Height 6 ft Weight 287 lb - General General Appearance: No Acute Distress, Cooperative - Head Head Exam: Normal Inspection, Normocephalic, Atraumatic - Eye Eye Exam: POSITIVE: No Scleral Icterus - ENT ENT Exam: POSITIVE: Mucous Membranes Moist - Neck Neck Exam: Normal Inspection, No Tenderness, No Lymphadenopathy, No Thyromegaly, JVP is Raised - Respiratory Respiratory Exam: POSITIVE: Clear to Auscultation - Bilaterally, Breathing Non Labored - Cardiovascular Cardiovascular Exam: POSITIVE: RRR, No Murmur, No Clicks, No Gallops, No Rubs, No JVD - GI/Abdominal GI/Abdominal Exam: POSITIVE: Normal Bowel Sounds, Non Tender, Non Distended, Soft Additional GI/Abdominal Exam Details: Large brace is in place to protect patient's back limiting abdominal exam somewhat, but no pain with tenderness to palpation - Rectal Rectal Exam: POSITIVE: Deferred - External Exam: POSITIVE: Deferred Exam: POSITIVE: Deferred - Extremities Extremities Exam: POSITIVE: No Clubbing Present, No Edema Present, No Cyanosis Present - Neurological Neurological Exam: POSITIVE: Alert, No Facial Droop, Speech Intact / Clear, Moves All Extremities Equally, Altered (He is oriented to person, oriented to knowing he had some sort of procedure but not to time or SITUATION.) - Integumentary Integumentary Exam: POSITIVE: Normal Color, Warm, Dry, Intact Results - Labs CBC and BMP: 09/27/18 04:25 09/27/18 04:25 Additional Lab Results: Laboratory Results 09/25/18 09/26/18 09/27/18 16:15 21:41 04:25 WBC 13.04 H RBC 3.97 L Hgb 11.6 L 11.7 L Hct 35.0 L 34.4 L MCV 86.6 MCH 29.5 MCHC 34.0 RDW Std Deviation 41.9 RDW Coeff of Aubrie 13.5 Plt Count 170 MPV 9.3 Immature Gran % (Auto) 0.2 Neut % (Auto) 90.7 H Lymph % (Auto) 3.6 L [place] % (Auto) 5.4 Eos % (Auto) 0 Baso % (Auto) 0.1 Immature Gran # (Auto) 0.02 Neut # (Auto) 11.84 Lymph # (Auto) 0.47 [place] # (Auto) 0.70 Eos # (Auto) 0 Baso # (Auto) 0.01 WBC Morphology Comment Normal morphology Plt Morphology Comment Normal morphology RBC Morph Comment Normal morphology Sodium Potassium Chloride Carbon Dioxide Anion Gap BUN Creatinine BUN/Creatinine Ratio Glucose Calculated Osmolality Calcium Troponin I Blood Type A POSITIVE Antibody Screen Negative Crossmatch See Detail 09/27/18 09/27/18 04:25 07:50 WBC RBC Hgb Hct MCV MCH MCHC RDW Std Deviation RDW Coeff of Aubrie Plt Count MPV Immature Gran % (Auto) Neut % (Auto) Lymph % (Auto) [place] % (Auto) Eos % (Auto) Baso % (Auto) Immature Gran # (Auto) Neut # (Auto) Lymph # (Auto) [place] # (Auto) Eos # (Auto) Baso # (Auto) WBC Morphology Comment Plt Morphology Comment RBC Morph Comment Sodium 138 Potassium 4.7 Chloride 106 Carbon Dioxide 21 L Anion Gap 11 BUN 20 Creatinine 1.0 BUN/Creatinine Ratio 20.00 Glucose 163 H Calculated Osmolality 292.0 Calcium 8.3 L Troponin I 0.062 H Blood Type Antibody Screen Crossmatch - EKG Data -: EKG Interpreted by Me Rate: Tachycardia EKG Shows Normal: Sinus Rhythm - EKG Data EKG Interpretation: Other (There is an occasional PVC, no evidence of ST elevation to see just acute myocardial event.) - Imaging Status: Other (I am ordering a chest x-ray now.) Assessment and Plan - Patient Problems (1) Chest pain Current Visit: Yes Status: Acute Code(s): R07.9 - Chest pain, unspecified Qualifiers: Chest pain type: intercostal pain Qualified Code(s): R07.82 - Intercostal pain (2) Postoperative confusion Current Visit: Yes Status: Acute Code(s): R41.0 - Disorientation, unspecified (3) Hypertension Current Visit: Yes Status: Acute Code(s): I10 - Essential (primary) hypertension Qualifiers: Hypertension type: essential hypertension Qualified Code(s): I10 - Essential (primary) hypertension (4) Hypercholesterolemia Current Visit: Yes Status: Acute Code(s): E78.00 - Pure hypercholesterolemia, unspecified (5) Chronic low back pain Current Visit: Yes Status: Acute Code(s): M54.5 - Low back pain; G89.29 - Other chronic pain Qualifiers: Back pain laterality: bilateral Sciatica presence: unspecified whether sciatica present Qualified Code(s): M54.5 - Low back pain; G89.29 - Other chronic pain (6) History of pulmonary embolus (PE) Current Visit: Yes Status: Chronic Code(s): Z86.711 - Personal history of pulmonary embolism - Assessment / Plan Additional Assessment/Plan Details: trend troponins not a candidate for heart catheterization with spine surgery yesterday (cannot go on plavix) telemetry monitoring may need to start aspirin hospitalist service will not manage post-operative pain I think the troponin is likely minimally elevated in the setting of chest pain blunt "trauma" from prone position, but eventually needs stress testing for risk stratification NTG sublingual for Chest pain PRN already on morphine in terms of the PE/DVT, do not bridge therapy. when okay by neurosurgery, resum e eliquis at treatment dose. The prior PE/DVT sounds provoked, so on an outpatient basis, the patient could opt to go off anticoagulants
[2018-09-27] MEDS ORDERED: NITROGLYCERIN 0.4 MG SL TAB (BOTTLE OF 3) SL PRN (13:21)
--- NOTE | 2018-09-27 13:36 | DI ---
XR CXR 1VW 09/27/2018 1:11 PM HISTORY: [facility] ^chest pain Comparison: None. Findings: A single portable frontal view of the chest is submitted. Images demonstrate normal aeration without focal consolidation. There is no large pneumothorax. The r ight costophrenic angle is blunted which may represent artifact from atelectasis or scar versus a sma ll pleural effusion. The cardiomediastinal silhouette is within normal limits for technique with tort uosity of the thoracic aorta. There are degenerative changes of the glenohumeral and left acromioclav icular joints. There is slight apex right curvature of the thoracic spine with postsurgical changes o f the lower thoracic spine. The osseous structures are otherwise unremarkable. Impression: 1. No dense consolidation or pneumothorax. 2. Blunting of the right costophrenic angle may represent artifact versus a small pleural effusion.
--- NOTE | 2018-09-27 15:21 | OT.PROG ---
Progress Note Progress Note: S: pt stated he was okay and had pain with movement. pt agreed to complete therapy. O: tx consisted of co-treat with PT. OT tx consisted of bed mobility from supine to EOB with MOD A and from EOB to supine with MOD A and MAX A for proper positioning in bed. A: pt is not as confused as he was this morning at this time. P: continue POC
--- NOTE | 2018-09-27 16:48 | PT.PROG ---
Progress Note Progress Note: S. Patient stated that he would like to get out of bed for a bit. O. Patient performed sit to stand transfer and stood at the edge of bed x 1 minute and performed weight shifts x 10, then sat at the edge of bed x 3 minutes, Patient performed sit to stands x 3 and was left in bed with alarm and call light. A. Patient tolerated standing and transfers fair, Patient was sore however agreed that he had some relief of pain after standing up. Patient would continue to benefit from skilled therapy to increase mobility and strength. P. Continue POC.
[2018-09-27] MEDS: Simvastatin Tab 20 MG TAB PO SCH (21:16)
[2018-09-28] MEDS: oxyCODONE IR Tab 15 MG, oxyCODONE IR Tab 5 MG PO PRN ×10 (01:23→23:23)
[2018-09-28] MEDS: LEVOTHYROXINE 100 MCG TABLET PO SCH (04:33)
[2018-09-28] MEDS: HYDROCHLOROTHIAZIDE 25 MG TABLET PO SCH (07:23)
[2018-09-28] MEDS: PANTOPRAZOLE 40 MG TABLET PO SCH (07:24)
[2018-09-28 08:16] LABS: BASOPHILS # (AUTO) 0.01 10*3/UL; BASOPHILS % (AUTO) 0.1 % (0-1); EOSINOPHILS # (AUTO) 0.02 10*3/UL; EOSINOPHILS % (AUTO) 0.1 % (0-8); Hematocrit [HCT] 25.9 % (42.0-52.0); Hemoglobin [HGB] 8.9 g/dL (14.0-18.0); LYMPHOCYTES # (AUTO) 0.88 10*3/uL; MEAN CORPUSCULAR HEMOGLOBIN 30.5 PG (27-31); MEAN CORPUSCULAR HGB CONC 34.4 g/dL (33-37); MEAN CORPUSCULAR VOLUME 88.7 FL (80-90); MEAN PLATELET VOLUME 8.7 FL (7.4-12.2); MONOCYTES # (AUTO) 1.01 10*3/UL (0.3-0.8); MONOCYTES % (AUTO) 7.5 % (5-15); NEUTROPHILS # (AUTO) 11.46 10*3/UL; NEUTROPHILS % (AUTO) 85.4 % (50-80); RED BLOOD COUNT 2.92 10^6/uL (4.70-6.10)
--- NOTE | 2018-09-28 08:21 | NEURO.PROG ---
Subjective Post Op Day: 2 Pain Management: PO Carter Catheter: No Flatus: No Diet: Regular Ambulating: No Additional Details: Dr. Spencer rounded this morning, examined and visited with Mr. Zuniga. They talked about the plan for today, including increasing mobility, starting bowel protocol, removing his drains, and the possibility of going to [facility] for a short time when he leaves the hospital. He has good bilateral dorsi and plantar flexion strength and quad strength. His drains have decreased and become serosanquinous, so will plan to discontinue those today. This morning Mr Zuniga is more alert and expresses a desire to get up with physical therapy. He did stand yesterday but has not ambulated. He feels the need for a bowel movement, but no flatus reported. We will start the bowel protocol today. I spoke with Dior about starting a dialogue with [facility] for his acceptance there, mostly likely not before Monday. I will plan to visit with his about [facility] when she comes in today. He is also scheduled to have a cardiac echo today, per Dr. Stinson, and a plan will be made for restarting his Eloquis, preferably Monday but sooner if recommended by cardiology and Dr. Palmer. Objective : Data - Labs CBC and BMP: 09/27/18 04:25 09/27/18 04:25 - Vital Signs Vital Signs and I&O: Vital Signs - Last Taken Temperature 98.1 F 09/28/18 04:22 Pulse Rate 94 09/28/18 04:22 Respiratory Rate 22 09/28/18 04:22 Blood Pressure 155/79 09/28/18 04:22 Pulse Ox 93 09/28/18 04:22 Intake and Output (24hr x 4 totals) 09/26/18 09/27/18 09/28/18 09/29/18 05:59 05:59 05:59 05:59 Intake Total 7800 / 7800 4343 / 4343 Output Total 3790 / 3790 1855 / 1855 Balance 4010 / 4010 2488 / 2488
[2018-09-28 08:29] LABS: PLATELET MORPHOLOGY COMMENT NORMAL MORPHOLOGY (NORM); RBC MORPHOLOGY COMMENT NORMAL MORPHOLOGY (NORM); WBC MORPHOLOGY COMMENT NORMAL MORPHOLOGY (NORM)
[2018-09-28 08:33] LABS: BLOOD UREA NITROGEN 25 mg/dL (7-22); BUN/CREATININE RATIO 31.25 (6-20)
[2018-09-28] MEDS ORDERED: oxyCODONE IR Tab 15 MG TAB ONE (08:33)
[2018-09-28] MEDS: LISINOPRIL 10 MG TABLET PO SCH (08:39)
[2018-09-28] MEDS: oxyCODONE ER Tab 20 MG TAB PO SCH ×2 (08:39→20:11)
[2018-09-28] MEDS: Metoprolol TARTRATE Tab 50 MG TAB PO SCH (08:39)
[2018-09-28] MEDS: DOCUSATE 100 MG CAPSULE PO PRN ×2 (08:40→23:23)
[2018-09-28] MEDS: Multivitamin Tab 1 TAB PO SCH (08:40)
[2018-09-28] MEDS ORDERED: Sodium Chloride 0.9% 1,000 ML PRIMARY IV ONE ×2 (09:13→09:30)
--- NOTE | 2018-09-28 10:13 | PT.PROG ---
Progress Note Progress Note: S: Patient states he is feeling okay. He was able to sleep through the night, but he just feels very tired at all times. O: Patient presents to therapy in supine position in hospital bed. He became very fatigued following transfer from supine to sitting. His vitals were recorded and stable, though his blood pressure was low at 117/34; nursing staff was notified, and his BP was monitored throughout therapy. He was able to transfer from his bed to his chair with MOAx2. BP was recorded in standing as 109/52, and again once he was sitting in his chair; 126/54. Patient became fatigued again in his chair, and nursing staff was again notified. A: Patient shows with fair tolerance to treatment. He becomes very fatigued following all activities. Patient will benefit from skilled therapy to improve his strength for ambulation and transfers. P: Patient will be seen twice a day and once over the weekend until discharge. Patient will continue with functional activities in order to return home safely.
[2018-09-28 11:33] VITALS: BP 98/48; RESP 20; TEMP 98.2; O2SAT 91
--- NOTE | 2018-09-28 12:10 | PTI REPORT ---
Thank you for the referral of Mitchell Zuniga. He was seen on 09/27/18 for an inpatient evaluation status post lumbar fusion. SUBJECTIVE: The patient is a 73-year-old male who underwent a lumbar fusion on 09/26/2018. Per reports from nursing staff, the patient is agitated and would like to get up and move as he is not very comfortable in the bed. Also per nursing's report, the patient did undergo a very extensive surgery which lasted greater than 12 hours and the patient is confused as well as agitated. The patient states he has had two prior back surgeries. The patient also states that he primarily uses a four wheeled walker to get around with. When asked about a history of falls, he states that he probably has fallen, but was unable to give details or any specifics as he was fairly confused. When the patient was first asked where he lived, he stated [place], [place]. Later in the session when he was asked where he lived he was unsure and we did need to get confirmation from nursing staff that he is from [place]. He was able to state that he lives with his . The patient states that there are three stairs into the home, but he is unable to recall if there are any stairs within the home. Due to the patient's cognition we are not sure if this is the exact home set up. We will re-evaluate once the patient is more cognitively aware. The patient states that prior to his most recent surgery he was having difficulties with left lower extremity weakness. PAST MEDICAL HISTORY: Past medical history can be found in the patient's medical record. OBJECTIVE FINDINGS: General observations: The patient was pleasant and alert upon PT arrival. The patient was not very oriented to his setting. He was able to state which town he was in, but he was unsure of exactly where he was at. He did need cueing to remind him that he was in [place], [place] in the hospital and that he did undergo an extensive lumbar fusion surgery. The patient was fairly agitated and wanted to sit up secondary to his pain. The patient does have two drains in place along his incision on his back. He does also have an IV and is on two liters of oxygen. The patient did have ASHLYN hose on bilateral lower extremities, but these did have large tears around the ankle and lower extremity, so these were removed and socks were placed on the patient. Bed mobility: The patient required assist of three to perform bed mobility. The therapist did attempt to instruct patient with verbal and tactile cueing to perform a bridge to scoot over in bed; however, due to the patient's cognition he was unable to perform activity and did require assist of three. Once he was scooted over in the bed, the patient required max assist x2 in order to log roll and sit up edge of bed. Once in a seated position the patient had fair seated edge of bed balance. He denied any lightheadedness or dizziness but he was very anxious to get up and move. Transfers: Before the patient stood up, we did place his back brace in place and also placed a gait belt around the patient. The patient required max verbal and tactile cueing for proper hand placement to stand up. The patient performed a sit to stand transfer with mod assist x2 for safety. Once in a standing position, the patient had poor initial standing balance with hand hold assist x2 on the walker. Ambulation: The patient did require max cueing in order to move the walker and ambulate approximately 10 feet to the chair. The patient did have assist of two during the activity. Once we were in front of the chair, the patient was instructed with cues to reach back and sit down which he was able to complete with contact guard assist for safety reasons. ASSESSMENT: The patient has fair rehab potential secondary to his past medical history and his current cognition and difficulties with functional activities. Problem List: Patient is status post lumbar fusion Back pain Lower extremity weakness with left greater than right Decreased functional mobility Decreased endurance Short-Term Goals: To be met by discharge from inpatient: Patient will be able to verbalize lumbar fusion precautions including no bending/lifting/twisting, how to don and doff his brace independently, and how to perform a log roll in and out of bed independently. Patient will be able to perform all transfers safely, independently, and correctly per his precautions. Patient will be able to ambulate at least 150 feet with walker safely and independently. Patient will be able to ascend and descend at least 5 stairs safely and independently with use of walker. Long-Term Goals: To be met following discharge from inpatient: Patient may be seen by outpatient physical therapy if deemed necessary upon time of discharge. TREATMENT PLAN: Patient will be seen B.I.D during the week and one time per day over the weekend as an inpatient to address the above goals and objectives. INITIAL TREATMENT: Treatment today consisted of the initial evaluation. Following treatment, we were able to get the patient semi comfortable in the chair and put his legs up. We did place new ASHLYN hose on the patient. The patient was left in chair and nursing staff was notified that the patient was in the chair. Chair alarm was set and the patient's call light was placed within reach. [facility]
--- NOTE | 2018-09-28 12:38 | OTI REPORT ---
Thank you for the referral of Mitchell Zuniga. He was seen on 09/27/18 for an occupational therapy inpatient evaluation status post lumbar fusion. SUBJECTIVE: The patient is a 73-year-old male who is being seen secondary to having a back fusion. Nurses are reporting that he was under anesthesia for 12+ hours. He is having a hard time coming out from under the medication. He is slightly disoriented, confused, and agitated. The patient did not know where he was at and he did not know what had happened to him. He basically had forgotten that he had had surgery when the therapist arrived. He stated he wanted to get out of bed. PAST MEDICAL HISTORY: Past medical history can be found in the patient's medical record. OBJECTIVE FINDINGS: Bed mobility: The therapist helped the patient do a log roll to the edge of the bed with max assist x3. Activities of daily living: We had the patient try to dress himself. He was confused at how to put his arms through the hospital gown. While sitting edge of bed, he was not able to comprehend dressing equipment or precautions at this point in time. We tried some orientation questions and he was able to state "yes" after the question had been answered but was not able to initiate answers on his own. Transfers: The patient requires max assist x2 for functional transfers and a lot of verbal cueing in order for the patient to understand what is going on. Endurance: The patient's activity tolerance is poor. Range of motion: Upper extremity range of motion was within normal limits with bilateral upper extremities. Strength: Strength was hard to assess as the patient was not following instructions very well. ASSESSMENT: The patient would benefit from skilled occupational therapy at some point when he is more oriented to go over adaptive devices for dressing, to go over back precautions, and to address any safety needs. Problem List: Decreased ability to perform ADLs Decreased upper extremity strength Decreased activity tolerance Decreased orientation Short-Term Goals: To be met by discharge from inpatient: Patient will be able to dress self with use of adaptive equipment with min assist. Patient will be able to complete a toilet transfer and toilet hygiene independently. Patient will improve functional transfers to stand by assist. Patient will improve activity tolerance by being able to stand x5 minutes at sink to complete hygiene activities without any balance difficulties. Long-Term Goals: To be met following discharge from inpatient: Patient will be discharged home, demonstrating safety and independence with all functional activities and ADLs with adaptive devices. TREATMENT PLAN: Patient will be seen B.I.D during the week and one time per day over the weekend as an inpatient to address the above goals and objectives. INITIAL TREATMENT: Treatment today consisted of the evaluation followed by orientation questions, which the patient did poorly with. The patient then performed functional transfers with max assist x2 and bed mobility with max assist x3. MTDD
[2018-09-28] MEDS ORDERED: ACETAMINOPHEN 325 MG TABLET PO ONE (13:15)
[2018-09-28] MEDS ORDERED: predniSONE Tab 20 MG TAB PO ONE (13:15)
[2018-09-28] MEDS ORDERED: Sodium Chloride 0.9% 500 ML PRIMARY IV ONE (13:15)
--- NOTE | 2018-09-28 13:45 | PDOC(PROG) ---
Date of Service: 09/28/18 Time of Service: 13:15 Interval History: Patient seen and evaluated a couple of times today. Spoke with . Spoke with patient's brother. Spoke with neurosurgery. The patient has had some feelings of dizziness and lightheadedness. On a prior orthopedic surgery, the patient benefited very well in terms of the symptoms with a blood transfusion. He was orthostatic earlier and although his orthostasis improved with a bolus of normal saline, the patient has persisted in his symptoms of lightheadedness and dizziness with position changes. He is fatigued as well. There are no complaints of chest pain except with palpation of the chest, no shortness of breath, no nausea or vomiting. Back pain is better controlled. Objective : Data - Labs CBC and BMP: 09/28/18 08:10 09/28/18 08:10 Additional Lab Results: 09/27/18 09/27/18 09/27/18 07:50 13:18 20:35 Troponin I 0.062 H 0.061 H 0.054 H Objective : Exam - General General Appearance: No Acute Distress, Cooperative Additional General Exam Details: Vital Signs - Last Taken Temperature 97.8 F 09/28/18 13:00 Pulse Rate 96 09/28/18 13:00 Respiratory Rate 18 09/28/18 13:00 Blood Pressure 101/61 09/28/18 13:00 Pulse Ox 95 09/28/18 13:00 Selected Entries 09/28/18 11:15 09/28/18 11:20 09/28/18 11:25 Blood Pressure [Right Arm] 115/97 121/43 98/48 Blood Pressure Position [Right Arm] Standing Sitting Supine Most recent set. Selected Entries 09/28/18 08:47 09/28/18 09:00 Blood Pressure [Right Arm] 101/56 82/50 Blood Pressure Mean [Right Arm] 71 Blood Pressure Position [Right Arm] Standing From earlier. - Eye Eye Exam: No Scleral Icterus - ENT ENT Exam: Mucous Membranes Moist - Respiratory Respiratory Exam: Clear to Auscultation - Bilaterally, Breathing Non Labored - Cardiovascular Cardiovascular Exam: RRR, No Murmur, No Clicks, No Gallops, No Rubs, No JVD - GI/Abdominal GI/Abdominal Exam: Normal Bowel Sounds, Non Tender, Non Distended, Soft - Extremities Extremities Exam: No Clubbing Present, No Edema Present, No Cyanosis Present - Neurological Neurological Exam: Alert, Oriented x 3, No Facial Droop, Speech Intact / Clear, Moves All Extremities Equally Assessment and Plan - Patient Problems (1) Chest pain Current Visit: Yes Status: Acute Code(s): R07.9 - Chest pain, unspecified Qualifiers: Chest pain type: intercostal pain Qualified Code(s): R07.82 - Intercostal pain (2) Postoperative confusion Current Visit: Yes Status: Acute Code(s): R41.0 - Disorientation, un specified (3) Hypertension Current Visit: Yes Status: Acute Code(s): I10 - Essential (primary) hypertension Qualifiers: Hypertension type: essential hypertension Qualified Code(s): I10 - Essential (primary) hypertension (4) Hypercholesterolemia Current Visit: Yes Status: Acute Code(s): E78.00 - Pure hypercholesterolemia, unspecified (5) Chronic low back pain Current Visit: Yes Status: Acute Code(s): M54.5 - Low back pain; G89.29 - Other chronic pain Qualifiers: Back pain laterality: bilateral Sciatica presence: unspecified whether sciatica present Qualified Code(s): M54.5 - Low back pain; G89.29 - Other chronic pain (6) History of pulmonary embolus (PE) Current Visit: Yes Status: Chronic Code(s): Z86.711 - Personal history of pulmonary embolism - Assessment / Plan Additional Assessment/Plan Details: Continue Eliquis as resume it on Monday. Stop blood pressure medications and reduce Lopressor. We'll stop hydrochl orothiazide and lisinopril. When blood pressures are improved we can resume these medications. The patient is still symptomatic, and I think given his history of improving with a blood transfusion in the past with lightheadedness, fatigue, and his hemoglobin dropping down to 8.9, it may be reasonable to give 1 unit of blood. Generally I prefer to wait until the hemoglobin is 7, but he has symptomatic anemia post operatively. Labs in a.m. Discussed with patient, , neurosurgeon team and they all agree.
--- NOTE | 2018-09-28 15:17 | PT.PROG ---
Progress Note Progress Note: Patient was not seen this afternoon due to receiving blood transfusion.
[2018-09-28] MEDS: Simvastatin Tab 20 MG TAB PO SCH (20:11)
[2018-09-28] MEDS: DIAZEPAM 10 MG TABLET PO PRN (23:24)
[2018-09-29] MEDS: oxyCODONE IR Tab 15 MG, oxyCODONE IR Tab 5 MG PO PRN ×6 (03:07→23:37)
[2018-09-29] MEDS: LEVOTHYROXINE 100 MCG TABLET PO SCH ×2 (04:04→05:34)
[2018-09-29 04:59] LABS: Hematocrit [HCT] 29.7 % (42.0-52.0); Hemoglobin [HGB] 10.5 g/dL (14.0-18.0); MEAN CORPUSCULAR HEMOGLOBIN 30.7 PG (27-31); MEAN CORPUSCULAR HGB CONC 35.4 g/dL (33-37); MEAN CORPUSCULAR VOLUME 86.8 FL (80-90); MEAN PLATELET VOLUME 8.8 FL (7.4-12.2); RED BLOOD COUNT 3.42 10^6/uL (4.70-6.10)
--- NOTE | 2018-09-29 05:22 | NEURO.PROG ---
Subjective Post Op Day: 3 Pain Management: PO Carter Catheter: No Flatus: Yes Diet: Regular Ambulating: Yes Additional Details: Mr Zuniga is making slow, steady progress. He says he thinks he feels a bit better after his blood transfusion yesterday. He has good strength bilaterally with both dorsi and plantar flexion and denies numbness or tingling. He has been slow to mobilize, so will encourage ambulation at least 3 times daily. He describes his pain as uncomfortable this morning and we talked about the fact he will be uncomfortable for some time, which Dr. Spencer had explained to him. Incision is reported to be dry, intact and without erythema by his nurse. Drains are out and he will be able to shower today. He also was nauseated with supper last night and did vomit up his salad. He denies nausea this morning but does have some persistent dyspepsia. He moved his bowels yestarday and has good bowel sounds. His hands still appear somewhat edematous and wonder if he would benefit from some lasix. Based on his orthostasis yesterday I will leave this up to Dr Spencer chapa day shift and after Mr Agustin has been up and around. Objective : Data - Labs CBC and BMP: 09/29/18 04:48 09/28/18 08:10 - Vital Signs Vital Signs and I&O: Vital Signs - Last Taken Temperature 97.6 F 09/29/18 04:58 Pulse Rate 93 09/29/18 04:58 Respiratory Rate 20 09/29/18 04:58 Blood Pressure 152/70 09/29/18 04:58 Pulse Ox 93 09/29/18 05:00 Intake and Output (24hr x 4 totals) 09/26/18 09/27/18 09/28/18 09/29/18 05:59 05:59 05:59 05:59 Intake Total 7800 / 7800 4343 / 4343 1970 / 1970 Output Total 3790 / 3790 1855 / 1855 895 / 895 Balance 4010 / 4010 2488 / 2488 1076 / 1076
[2018-09-29] MEDS ORDERED: POTASSIUM CHLORIDE 20 MEQ TAB PO ONE (08:17)
[2018-09-29] MEDS ORDERED: FUROSEMIDE 10 MG/1 ML - 2 ML VIAL IVP ONE ×2 (08:17→15:25)
[2018-09-29] MEDS: PANTOPRAZOLE 40 MG TABLET PO SCH (08:27)
[2018-09-29] MEDS: Multivitamin Tab 1 TAB PO SCH (08:27)
[2018-09-29] MEDS: Metoprolol TARTRATE Tab 25 MG TAB PO SCH (08:28)
[2018-09-29] MEDS: DOCUSATE 100 MG CAPSULE PO SCH ×2 (08:28→21:20)
[2018-09-29] MEDS: oxyCODONE ER Tab 20 MG TAB PO SCH ×2 (08:28→21:20)
--- NOTE | 2018-09-29 11:44 | PDOC(PROG) ---
Date of Service: 09/29/18 Time of Service: 11:38 Interval History: patient seen, evaluated earlier. no chest pain, no Shortness of breath, no abdominal pain. moving bowels. states he has nausea and vomiting. back pain worse. hands feel puffy. does feel better after blood. Objective : Data - Labs CBC and BMP: 09/29/18 04:48 09/28/18 08:10 Objective : Exam - General General Appearance: No Acute Distress, Cooperative Additional General Exam Details: Vital Signs - Last Taken Temperature 97.4 F 09/29/18 11:37 Pulse Rate 78 09/29/18 11:37 Respiratory Rate 20 09/29/18 11:37 Blood Pressure 118/68 09/29/18 11:37 Pulse Ox 95 09/29/18 11:37 - Eye Eye Exam: No Scleral Icterus - ENT ENT Exam: Mucous Membranes Moist - Neck Neck Exam: JVP is not Raised - Respiratory Respiratory Exam: Breathing Non Labored, Coarse Breath Sounds (in bases) - Cardiovascular Cardiovascular Exam: RRR, No Murmur, No Clicks, No Gallops, No Rubs, No JVD - GI/Abdominal GI/Abdominal Exam: Normal Bowel Sounds, Non Tender, Non Distended, Soft, Hypoactive Bowel Sounds - Extremities Extremities Exam: No Clubbing Present, No Cyanosis Present, +1 Edema (hands, upper extremities) - Back Additional Back Exam Details: incision is dressed, dressing is clean, dry, intact. - Neurological Neurological Exam: Alert, Oriented x 3, No Facial Droop, Speech Intact / Clear, Moves All Extremities Equally Assessment and Plan - Patient Problems (1) Fluid overload Current Visit: Yes Status: Acute Code(s): E87.70 - Fluid overload, unspecified Qualifiers: Hypervolemia type: other Qualified Code(s): E87.79 - Other fluid overload (2) Hypertension Current Visit: Yes Status: Acute Code(s): I10 - Essential (primary) hypertension Qualifiers: Hypertension type: essential hypertension Qualified Code(s): I10 - Essential (primary) hypertension (3) Hypercholesterolemia Current Visit: Yes Status: Acute Code(s): E78.00 - Pure hypercholes terolemia, unspecified (4) Chronic low back pain Current Visit: Yes Status: Acute Code(s): M54.5 - Low back pain; G89.29 - Other chronic pain Qualifiers: Back pain laterality: bilateral Sciatica presence: unspecified whether sciatica present Qualified Code(s): M54.5 - Low back pain; G89.29 - Other chronic pain (5) History of pulmonary embolus (PE) Current Visit: Yes Status: Chronic Code(s): Z86.711 - Personal history of pulmonary embolism (6) Chest pain Current Visit: Yes Status: Resolved Code(s): R07.9 - Chest pain, unspecified Qualifiers: Chest pain type: intercostal pain Qualified Code(s): R07.82 - Intercostal pain (7) Postoperative confusion Current Visit: Yes Status: Resolved Code(s): R41.0 - Disorientation, unspecified - Assessment / Plan Additional Assessment/Plan Details: patient is about 7 liters ahead. stop fluids, give a dose of lasix and potassium today, re-evaluate eliquis should be resumed monday for PE/DVT prevention. given a provoked event in the past, a few months after this surgery one might consider stopping eliquis ECHO pending, cardiology evaluation scheduled already as an outpatient pain medications as per neurosurgery PT and OT possible [facility] on Monday? as per neurosurgery hold blood pressure medications. check KUB with nausea and vomiting--doubt ileus, but reduced bowel sounds today. blood counts improved. check CBC tomorrow.
--- NOTE | 2018-09-29 12:32 | DI ---
EXAM: XR Abdomen, 2 Views CLINICAL HISTORY: ITS.REASON hypoactive bowel sounds Physician Notes: Tech Comments: TECHNIQUE: Frontal view of the abdomen/pelvis with upright view of the abdomen. COMPARISON: None FINDINGS: Hardware: None. Abdomen: Nonspecific bowel gas pattern with gaseous distention of colon and small bowel. Cystectomy clips in the right upper quadrant. Bones: Spinal fusion hardware. Left hip arthroplasty partially visualized. Mild degenerative changes of the right hip. Degenerative changes of the spine. Soft tissues: Skin mil over the midline. Lower chest: Normal. IMPRESSION: Nonspecific bowel gas pattern with gaseous distention of colon and small bowel. This may represent postoperative ileus versus enteritis.
[2018-09-29] MEDS: POTASSIUM CHLORIDE 20 MEQ TAB PO ONE (15:48)
[2018-09-29] MEDS: MAGNESIUM 400 MG/5 ML - 30 ML (MILK OF MAGNESIA) PO SCH ×2 (18:57→22:34)
[2018-09-29] MEDS: Simvastatin Tab 20 MG TAB PO SCH (21:20)
[2018-09-29] MEDS ORDERED: LIDOCAINE HCL 2 % 10 ML JELLY URO-JECT TOPICAL ONE (23:23)
[2018-09-29] MEDS: DIAZEPAM 10 MG TABLET PO PRN (23:37)
[2018-09-29] MEDS: Acetaminophen 1000mg Inj 1,000 MG/100 ML VIAL IV PRN (23:39)
[2018-09-30] MEDS: D5-1/2NS + 20mEq KCL 1,000 ML PRIMARY IV SCH ×2 (00:28→10:24)
[2018-09-30 04:49] LABS: Hematocrit [HCT] 26.5 % (42.0-52.0); Hemoglobin [HGB] 8.9 g/dL (14.0-18.0); MEAN CORPUSCULAR HEMOGLOBIN 30.1 PG (27-31); MEAN CORPUSCULAR HGB CONC 33.6 g/dL (33-37); MEAN CORPUSCULAR VOLUME 89.5 FL (80-90); RED BLOOD COUNT 2.96 10^6/uL (4.70-6.10)
[2018-09-30 05:03] LABS: BLOOD UREA NITROGEN 26 mg/dL (7-22)
[2018-09-30] MEDS: MAGNESIUM 400 MG/5 ML - 30 ML (MILK OF MAGNESIA) PO SCH ×4 (06:31→22:45)
[2018-09-30] MEDS: oxyCODONE IR Tab 15 MG, oxyCODONE IR Tab 5 MG PO PRN ×6 (06:32→15:01)
[2018-09-30] MEDS: LEVOTHYROXINE 100 MCG TABLET PO SCH (06:32)
--- NOTE | 2018-09-30 08:52 | DI ---
EXAM: XR Abdomen Complete With XR Chest. CLINICAL HISTORY: Ileus TECHNIQUE: Frontal view of the chest, frontal view of the abdomen/pelvis and upright view of the abdomen. COMPARISON: 09/29/18 at 1150 hrs. FINDINGS: Lungs: The lungs are mildly hypoinflated. No definite airspace consolidation. Probable scarring or atelectasis seen in the right lower lobe. No acute interstitial abnormality. Pleural spaces: No significant pleural effusions. No pneumothorax. Heart: No cardiomegaly. Mediastinum: No mediastinal widening or shift. Free air: None. Gastrointestinal tract: Enteric tube in place with tip in gastric lumen. Again seen are distended loops of large and small bowel within the abdomen, not significantly changed when compared to the prior study. Findings are most consistent with an adynamic ileus. Mechanical small bowel obstruction is less likely. Bones: No acute osseous abnormality. Extensive thoracolumbar spinal stabilization hardware again seen.. IMPRESSION: Again seen are distended loops of small and large bowel within the abdomen, most likely due to diffuse adynamic ileus. Enteric tube in place with tip in gastric lumen. Mild lung hypoinflation without evidence of airspace consolidation, acute interstitial abnormality or significant pleural effusion.
[2018-09-30] MEDS: Multivitamin Tab 1 TAB PO SCH (08:54)
[2018-09-30] MEDS: PANTOPRAZOLE 40 MG TABLET PO SCH (08:54)
[2018-09-30] MEDS: oxyCODONE ER Tab 20 MG TAB PO SCH ×2 (08:54→20:07)
[2018-09-30] MEDS: Metoprolol TARTRATE Tab 25 MG TAB PO SCH (08:54)
[2018-09-30] MEDS: DOCUSATE 100 MG CAPSULE PO SCH ×2 (08:54→20:07)
[2018-09-30] MEDS ORDERED: LIDOCAINE HCL 2 % 10 ML JELLY URO-JECT TOPICAL PRN (10:14)
--- NOTE | 2018-09-30 10:24 | PDOC(PROG) ---
Interval History: Patient denies chest pain feels bloated and distended no active bowel sounds no bowel movements no frontal clearanceutolance Objective : Data - Labs CBC and BMP: 09/30/18 04:18 09/30/18 04:18 Objective : Exam - General General Appearance: Cooperative - Respiratory Respiratory Exam: Clear to Auscultation - Bilaterally, Breathing Non Labored, Normal To Percussion, Normal to Percussion and Palpation - Cardiovascular Cardiovascular Exam: RRR, No Murmur, No Clicks, No Gallops, No Rubs, PMI Non- Displaced - GI/Abdominal GI/Abdominal Exam: Non Tender, Firm, Distended, Hypoactive Bowel Sounds - Extremities Extremities Exam: No Clubbing Present, +2 Edema - Neurological Neurological Exam: Alert, Oriented x 3, No Facial Droop, Speech Intact / Clear, Moves All Extremities Equally Assessment and Plan - Patient Problems (1) Ileus, postoperative Current Visit: Yes Status: Acute Comment: Patient has an NG tube in KUB revealed ileus patient is edematous we'll start Carter catheter and Lasix drip most likely will consult general surgery if not better or resolved shortly. Defer postop neurosurgical pain management to the neurosurgery team. Discussed with Vignesh and Sharron nurses on the case and patient's and patient himself which agrees with the plan Code(s): K91.89 - Other postprocedural complications and disorders of digestive system; K56.7 - Ileus, unspecified (2) Fluid overload Current Visit: Yes Status: Acute Comment: Patient is a head 78 L Lasix yesterday given by my colleague only produced to 350 mL out once in 500 with the Lasix patient is severely edematous upper and lower extremities now also has an ileus. We'll insert Carter catheter for accurate output and possible prostate enlargement we'll also start Lasix drip I believe this will help the patient feel better and may be hopefully resolve his ileus Code(s): E87.70 - Fluid overload, unspecified Qualifiers: Hypervolemia type: other Qualified Code(s): E87.79 - Other fluid overload (3) History of pulmonary embolus (PE) Current Visit: Yes Status: Chronic Comment: Defer to neurosurgery team for when to restart anticoagulation post surgery patient is also anemic Code(s): Z86.711 - Personal history of pulmonary embolism (4) Chest pain Current Visit: Yes Status: Resolved Comment: Troponin 3 is slightly elevated most likely will need stress test as an outpatient denies chest pain at present time Code(s): R07.9 - Chest pain, unspecified Qualifiers: Chest pain type: intercostal pain Qualified Code(s): R07.82 - Intercostal pain (5) Hypertension Current Visit: Yes Status: Acute Comment: Stable at present time Code(s): I10 - Essential (primary) hypertension Qualifiers: Hypertension type: essential hypertension Qualified Code(s): I10 - Essential (primary) hypertension (6) Hypercholesterolemia Current Visit: Yes Status: Acute Code(s): E78.00 - Pure hypercholesterolemia, unspecified (7) Postoperative confusion Current Visit: Yes Status: Resolved Comment: Resolved. Code(s): R41.0 - Disorientation, unspecified (8) Adynamic ileus Current Visit: Yes Status: Acute Code(s): K56.0 - Paralytic ileus
--- NOTE | 2018-09-30 16:26 | NEURO.PROG ---
Subjective Pain Management: PO Gusman Catheter: Yes Flatus: No Diet: NPO Ambulating: No Additional Details: I visited with Mr. Zuniga and his family today ( and brother). He is alert, and in relatively good spirits. Says he feels better since the NG tube and gusman were placed. He is afebrile and his V/S are stable. Incision is dry and intact. His dorsi and plantar flexion remain strong and he denies any peripheral symptoms of numbness or tingling. Pain control varies but he currently says is sufficient. He still appears distended and no bowel sounds reported but his abdomen is nontender. We talked about getting up out of bed if he feels up to it and sitting on the edge of the bed. Will defer plans for Dr. Key. Objective : Data - Labs CBC and BMP: 09/30/18 04:18 09/30/18 04:18 - Vital Signs Vital Signs and I&O: Vital Signs - Last Taken Temperature 97.4 F 09/30/18 11:08 Pulse Rate 98 09/30/18 15:00 Respiratory Rate 18 09/30/18 11:08 Blood Pressure 123/75 09/30/18 11:08 Pulse Ox 96 09/30/18 11:08 Intake and Output (24hr x 4 totals) 09/28/18 09/29/18 09/30/18 10/01/18 05:59 05:59 05:59 05:59 Intake Total 4343 / 4343 1970 / 1970 2099 / 2099 588 / 588 Output Total 1855 / 1855 895 / 895 1450 / 1450 800 / 800 Balance 2488 / 2488 1076 / 1076 650 / 650 -212 / -212
--- NOTE | 2018-09-30 17:38 | EKG ---
[address] [address] Measurements Intervals [place] Rate: 91 P: 43 DE: 154 QRS: 37 QRSD: 146 T: -5 QT: 403 QTc: 452 Interpretive Statements SINUS RHYTHM RIGHT BUNDLE BRANCH BLOCK [120+ ms QRS DURATION, UPRIGHT V1, 40+ ms S IN I/aVL/V4/V5/V6] Compared to ECG 09/27/2018 07:56:46 Sinus tachycardia no longer present Ventricular premature complex(es) no longer present Electronically Signed On 10-01-18 08:14:20 MST by Romeo Thornton MD [email or web address]
[2018-09-30] MEDS ORDERED: ONDANSETRON 4 MG/2 ML VIAL IVP PRN (17:41)
[2018-09-30 18:18] LABS: BILIRUBIN,URINE NEGATIVE (NEG); CLARITY,URINE CLEAR (CLEAR); COLOR,URINE YELLOW (Y); GLUCOSE, URINE (UA) NEGATIVE (NEG); OCCULT BLOOD,URINE Trace-lysed (NEG); PROTEIN,URINE NEGATIVE (NEG); UROBILINOGEN,URINE 0.2 EU/dL (0.2)
[2018-09-30 18:26] LABS: RBC,URINE 0-1 /hpf; URINE CASTS RARE; URINE SAMPLE TYPE CATH SPECIMEN; WBC,URINE 0-1; YEAST,URINE MODERATE
[2018-09-30] MEDS ORDERED: Fluconazole 400mg (Premix) 400 MG/200 ML BAG IV SCH (19:15)
[2018-09-30] MEDS: Acetaminophen 1000mg Inj 1,000 MG/100 ML VIAL IV PRN (19:38)
[2018-09-30] MEDS: MORPHINE SULFATE 2 MG/1 ML IVP PRN ×2 (20:23→22:48)
--- NOTE | 2018-09-30 21:08 | DI ---
EXAM: CT Angiography Chest With Intravenous Contrast CLINICAL HISTORY: ITS.REASON shortness of breath Physician Notes: Tech Comments: TECHNIQUE: Axial computed tomographic angiography images of the chest with intravenous contrast using pulmonary embolism protocol. MIP reconstructed images were created and reviewed. COMPARISON: No relevant prior studies available. FINDINGS: Pulmonary arteries: Bilateral pulmonary emboli, right lung greater than left. Partially occlusive clot spanning the right pulmonary artery bifurcation. There are segmental or subsegmental emboli involving all lobes to some degree. Aorta: No acute findings. No thoracic aortic aneurysm. Lungs: Mild dependent atelectasis. No clear parenchymal infarct Pleural space: Unremarkable. No significant effusion. No pneumothorax. Heart: Coronary atherosclerosis. Bones/joints: No acute fracture. Evidence of recent thoracolumbar fusion. Soft tissues: Enteric tube. Lymph nodes: Unremarkable. No enlarged lymph nodes. IMPRESSION: Pulmonary emboli involving all lobes to some degree. No clear findings of right heart strain. Recent thoracolumbar fusion [employer] 09/30/18 21:16 Call Doctor Regarding Pulmonary Embolism, called Dr. Key ([phone]) on 09/30 21:16 (-07:00)
--- NOTE | 2018-09-30 21:18 | DI ---
EXAM: CT Abdomen and Pelvis With Intravenous Contrast CLINICAL HISTORY: ITS.REASON worsening abd pain Physician Notes: Tech Comments: TECHNIQUE: Axial computed tomography images of the abdomen and pelvis with intravenous contrast. COMPARISON: No relevant prior studies available. FINDINGS: Thoracic findings discussed in the separately dictated chest CT report. Status post cholecystectomy. No biliary ductal dilation. Pancreatic atrophy without inflammation. Left renal hypodensities that are too small to characterize, but most likely a cyst. No hydronephrosis. Nodular thickening of the left adrenal gland. Unremarkable spleen. Enteric tube terminates in the gastric fundus. There is diffuse small bowel distention. Colon is also distended, particularly proximally. Suspect adynamic ileus, given recent surgery. No transition point to suggest mechanical obstruction. Several colonic diverticula without findings of diverticulitis. Small amount of free pelvic fluid. No enhancing wall to suggest a loculated abscess. Carter catheter decompressing the urinary bladder. Bipolar left hip prosthesis is normally located. The spinal fusion extends from T10-S1 with pedicle screws and paravertebral rods. There is also anterior fusion/interbody hardware at L3-4 and L4-5. L5 spondylolysis with grade 1 anterolisthesis. Skin mil. Body wall edema. No clear postoperative abscess or significant hematoma. IMPRESSION: Small and large bowel distention, likely adynamic ileus given recent thoracolumbar fusion. Small volume ascites. Body wall edema/anasarca.
[2018-09-30] MEDS ORDERED: HEPARIN 5000 UNIT/1 ML IV ONE (21:53)
[2018-09-30] MEDS ORDERED: Heparin Drip 25,000 UNIT/500 ML BAG IV SCH (22:00)
--- NOTE | 2018-09-30 22:17 | DCSUMMARY ---
Hospitalization Summary Hospital Course: Final Discharge Diagnosis: Current Visit Problems Problem Status Onset Code Chest pain Resolved R07.9 Hypertension Acute I10 Hypercholesterolemia Acute E78.00 Chronic low back pain Acute M54.5, G89.29 Postoperative confusion Resolved R41.0 Fluid overload Acute E87.70 Ileus, postoperative Acute K91.89, K56.7 Adynamic ileus Acute K56.0 History of pulmonary embolus (PE) Chronic Z86.711 Extensive bilateral pulmonary emboli Diagnostic Data, Laboratory Data, and Procedures of Signifigance: Past Medical History Medical History: 1. Hypertension. 2. Hypercholesteremia. 3. Hypothyroidism. 4. Chronic low back pain. 5. History of pulmonary/DVT post prior back surgery Surgical History: 1. Back surgeries. 2. Cholecystectomy. 3. Right knee replacement Pertinent Family History: No significant family history of heart disease Past Social History: . Lives in [place], [place]. Has children. Does not smoke or drink. Tobacco Use: Never Smoker In the Past 12 Months, Have Used or Abuse Any of the Following Substance: None Alcohol Use: None Medication / Allergies Home Medications: Home Medications Medication Instructions Recorded Confirmed Type apixaban 5 mg tablet 5 mg PO BID 06/22/18 09/26/18 History hydrochlorothiazide 25 mg tablet 25 mg PO QDAY 06/22/18 09/26/18 History levothyroxine 100 mcg capsule 100 mcg PO QDAY 06/22/18 09/26/18 History lisinopril 10 mg tablet 10 mg PO QDAY 06/22/18 09/26/18 History metoprolol tartrate 50 mg tablet 50 mg PO QDAY tab 06/22/18 09/26/18 History simvastatin 20 mg tablet 20 mg PO QPM 06/22/18 09/26/18 History glucosamine-chondroitin 250 mg-200 1 tab PO QPC tab 08/27/18 09/26/18 History mg tablet multivitamin,[id number] 1 tab PO QDAY 08/27/18 09/26/18 History tablet Laboratory Results 09/30/18 09/30/18 09/30/18 04:18 04:18 17:00 WBC 8.62 RBC 2.96 L Hgb 8.9 L Hct 26.5 L MCV 89.5 MCH 30.1 MCHC 33.6 RDW Std Deviation 43.8 RDW Coeff of Aubrie 14.1 Plt Count 171 MPV 9.0 Sodium 133 L Potassium 4.0 Chloride 98 Carbon Dioxide 27 Anion Gap 8 BUN 26 H Creatinine 1.0 BUN/Creatinine Ratio 26.00 H Glucose 114 H Calculated Osmolality 281.0 Calcium 8.4 L Magnesium 2.2 Troponin I NT-Pro-B Natriuret Pep 711 H Ur Collection Type Urine Color Urine Clarity Urine pH Ur Specific Metter Urine Protein Urine Glucose (UA) Urine Ketones Urine Occult Blood Urine Nitrate Urine Bilirubin Urine Urobilinogen Ur Leukocyte Esterase Urine RBC Urine WBC Ur Squamous Epith Cells Ur Renal Epithelial Cell Urine Crystals Urine Bacteria Urine Casts Urine Mucus Urine Trichomonas Urine Yeast Ur Culture Indicated? 09/30/18 09/30/18 17:00 18:15 WBC RBC Hgb Hct MCV MCH MCHC RDW Std Deviation RDW Coeff of Aubrie Plt Count MPV Sodium Potassium Chloride Carbon Dioxide Anion Gap BUN Creatinine BUN/Creatinine Ratio Glucose Calculated Osmolality Calcium Magnesium Troponin I 0.018 NT-Pro-B Natriuret Pep Ur Collection Type Cath specimen Urine Color Yellow Urine Clarity Clear Urine pH 5.0 Ur Specific Metter 1.010 Urine Protein Negative Urine Glucose (UA) Negative Urine Ketones Negative Urine Occult Blood Trace-lysed H Urine Nitrate Negative Urine Bilirubin Negative Urine Urobilinogen 0.2 Ur Leukocyte Esterase Trace Urine RBC 0-1 Urine WBC 0-1 Ur Squamous Epith Cells None Ur Renal Epithelial Cell None Urine Crystals None Urine Bacteria None Urine Casts Rare Urine Mucus Few Urine Trichomonas None Urine Yeast Moderate H Ur Culture Indicated? Culture set History and Physical pertinent to Admission: Mr. Zuniga is a 73-year-old gentleman, patient well-known to me, who underwent an L3-4 and L4-5 anterior lumbar interbody fusion. He was to undergo in a staged fashion, several days later, a T10 to S1/ilial fusion, however, this procedure was never performed because Mr. Zuniga developed a postoperative infection with a draining seroma from his anterior surgery and then developed a pulmonary embolus without DVT, which required him to be anticoagulated for a full year. More recently, Mr. Zuniga has presented to my new [facility] wishing to proceed with the second portion of that procedure, the T10-S1/ilial fusion. Mr. Zuniga continues to have the significant back pain, constant 7/10 with symptoms of neurogenic claudication but without radicular symptoms. He had a previous lumbar myelogram with post-myelogram CT as well as a more recent study that demonstrated severe multillevel lumbar degenerative disc disease with multilevel advanced facet arthropathy and hypertrophy. The studies demonstrated bilateral pars defects at L5-S1, with vertebral body slip at this level and severe central canal, bilateral lateral recess, and bilateral neuroforaminal stenosis. Findings: 1.) Severe L5-S1 central canal stenosis secondary. 2.) Severe L5-S1 lateral recess stenosis bilaterally. 3.) Severe L5-S1 neuroforaminal stenosis bilaterally. 4.) Loose right superior S1 articulating facet. 5.) Extruded synovium L5-S1 bilaterally. As per Dr. Spencer's note above Course of Hospitalization: This very nice 73-year-old gentleman who is status post lower back surgery please see above for description had some extensive fluid overload with anasarca kind of picture postop with hypoxia minimally bumped troponins on the . He did have an echo on the that was sent to [facility] results not available yet. I saw the patient for the first time today he appeared to me with a clinical picture of right heart failure and anasarca with severe edema. I inserted a Carter catheter started Lasix drip was able to diurese around 2 L. Chest x-ray was negative UA negative except for yeast. But because of the right heart failure picture elevated BNP I decided to order a CTA of the chest to rule out PE. Considering his previous history of PE. Unfortunately he has a partial saddle emboli with anasarca and bilateral emboli more on the right than the left and multiple lobes of his lungs. I discussed the case with Dr. Spencer is a neurosurgeon he was okay with me starting heparin drip I did discuss with him that the patient and most likely needed an echo to rule out right heart strain and if there was right heart strain now catheter directed embolectomy could be possible this is done at the [facility]. Neurosurgeon recommended the patient be transferred. I did speak with the since Dr. Arita told me that he did catheter directed embolectomy subsequently I called my partner Dr. Arita again and asked if he had the bank operations officer which was Dr. Dove I did call the ER and transferred the patient and I let Dr. Espinosa in the ER I also told Dr. Ren all of all the information above as well and she accepted the patient kindly. I did discuss all the above with the patient I did give him a choice if they wanted to go tonight or tomorrow morning the patient requested to be transferred tonight he rather be at [facility] where cardiology subspecialty is available. Discussed with nursing will start heparin drip all in agreement. I have attached to my note both reports CT of his chest and abdomen and pelvis On the date of discharge, the patient was examined: Gen.: [No acute distress, alert, nontoxic] Heart: [Regular rate and rhythm, no murmurs, clicks, gallops, or rubs] Lungs: [Clear to auscultation bilaterally, breathing is nonlabored] Abdomen/GI: [Normal tones on auscultation, soft, nontender, nondistended] Musculoskeletal/extremities: [No clubbing, cyanosis, or edema] Vitals reviewed and are listed below Vital Signs (24 hrs) 09/29/18 23:00 09/30/18 00:41 09/30/18 03:00 Temperature 97.9 F Pulse Rate 98 Pulse Rate [Pulse Oximeter] 94 Respiratory Rate 18 Blood Pressure [Right Arm] 112/62 Pulse Ox 94 94 96 09/30/18 04:08 09/30/18 04:37 09/30/18 06:52 Temperature 98.2 F Pulse Rate Pulse Rate [Pulse Oximeter] 74 Respiratory Rate 18 Blood Pressure [Right Arm] 122/58 Pulse Ox 91 96 91 09/30/18 06:54 09/30/18 07:00 09/30/18 11:00 Temperature 97.2 F Pulse Rate 116 H 96 Pulse Rate [Pulse Oximeter] 86 Respiratory Rate 18 16 Blood Pressure [Right Arm] 124/61 Pulse Ox 91 09/30/18 11:08 09/30/18 15:00 09/30/18 16:16 Temperature 97.4 F 97.5 F Pulse Rate 98 Pulse Rate [Pulse Oximeter] 80 86 Respiratory Rate 18 17 Blood Pressure [Right Arm] 123/75 126/72 Pulse Ox 96 95 09/30/18 19:38 09/30/18 20:06 Temperature 97.8 F Pulse Rate Pulse Rate [Pulse Oximeter] 104 H Respiratory Rate 20 Blood Pressure [Right Arm] 149/79 Pulse Ox 94 94 Assessment and Plan: 1. As per discharge assessments above 2. Disposition: [facility] 3. Condition on discharge, stable and improved. 4. Diet: Nothing by mouth 5. Activities: resume normal activities 6. Follow-Up: 1. [PCP] 2. 7. Medications at the Time of Discharge: Home Medications Medication Instructions Recorded Confirmed Type apixaban 5 mg tablet 5 mg PO BID 06/22/18 09/26/18 History hydrochlorothiazide 25 mg tablet 25 mg PO QDAY 06/22/18 09/26/18 History levothyroxine 100 mcg capsule 100 mcg PO QDAY 06/22/18 09/26/18 History lisinopril 10 mg tablet 10 mg PO QDAY 06/22/18 09/26/18 History metoprolol tartrate 50 mg tablet 50 mg PO QDAY tab 06/22/18 09/26/18 History simvastatin 20 mg tablet 20 mg PO QPM 06/22/18 09/26/18 History glucosamine-chondroitin 250 mg-200 1 tab PO QPC tab 08/27/18 09/26/18 History mg tablet multivitamin,[id number] 1 tab PO QDAY 08/27/18 09/26/18 History tablet 8. Time, care, counseling and coordination of care for this discharge is greater than 30 minutes. Sex: M Age: 73 Exam Name: CT CTA Chest Non-Coronary [facility] Exam Date: 09/30/18 Report # : [id number] CPT Code: 04864 EMR/MR #: [id number] Ordering: TEODORO KEY Admiting: Dr. Sherif Spencer MD. Primary: Tita Olivier PA-C. Attending: ALAINA HAYES DO Signed EXAM: CT Angiography Chest With Intravenous Contrast CLINICAL HISTORY: ITS.REASON shortness of breath Physician Notes: Tech Comments: TECHNIQUE: Axial computed tomographic angiography images of the chest with intravenous contrast using pulmonary embolism protocol. MIP reconstructed images were created and reviewed. COMPARISON: No relevant prior studies available. FINDINGS: Pulmonary arteries: Bilateral pulmonary emboli, right lung greater than left. Partially occlusive clot spanning the right pulmonary artery bifurcation. There are segmental or subsegmental emboli involving all lobes to some degree. Aorta: No acute findings. No thoracic aortic aneurysm. Lungs: Mild dependent atelectasis. No clear parenchymal infarct Pleural space: Unremarkable. No significant effusion. No pneumothorax. Heart: Coronary atherosclerosis. Bones/joints: No acute fracture. Evidence of recent thoracolumbar fusion. Soft tissues: Enteric tube. Lymph nodes: Unremarkable. No enlarged lymph nodes. IMPRESSION: Pulmonary emboli involving all lobes to some degree. No clear findings of right heart strain. Recent thoracolumbar fusion [employer] 09/30/18 21:16 Call Doctor Regarding Pulmonary Embolism, called Dr. Key ([phone]) on 09/30 21:16 (-07:00) Dictated By: Tomy Donnelly MD Signed By: 09/30/18 2115 Tomy Donnelly MD ~DIAGNOSTIC IMAGING REPORT~ Patient: Mitchell Zuniga : 1945 Sex: M Age: 73 Exam Name: CT Abdomen/Pelvis W Contrast Exam Date: 09/30/18 Report # : [id number] CPT Code: 28632 EMR/MR #: [id number] Ordering: TEODORO KEY Admiting: Dr. Sherif Spencer MD. Primary: Tita Olivier PA-C. Attending: ALAINA HAYES DO Signed EXAM: CT Abdomen and Pelvis With Intravenous Contrast CLINICAL HISTORY: ITS.REASON worsening abd pain Physician Notes: Tech Comments: TECHNIQUE: Axial computed tomography images of the abdomen and pelvis with intravenous contrast. COMPARISON: No relevant prior studies available. FINDINGS: Thoracic findings discussed in the separately dictated chest CT report. Status post cholecystectomy. No biliary ductal dilation. Pancreatic atrophy without inflammation. Left renal hypodensities that are too small to characterize, but most likely a cyst. No hydronephrosis. Nodular thickening of the left adrenal gland. Unremarkable spleen. Enteric tube terminates in the gastric fundus. There is diffuse small bowel distention. Colon is also distended, particularly proximally. Suspect adynamic ileus, given recent surgery. No transition point to suggest mechanical obstruction. Several colonic diverticula without findings of diverticulitis. Small amount of free pelvic fluid. No enhancing wall to suggest a loculated abscess. Carter catheter decompressing the urinary bladder. Bipolar left hip prosthesis is normally located. The spinal fusion extends from T10-S1 with pedicle screws and paravertebral rods. There is also anterior fusion/interbody hardware at L3-4 and L4-5. L5 spondylolysis with grade 1 anterolisthesis. Skin mil. Body wall edema. No clear postoperative abscess or significant hematoma. IMPRESSION: Small and large bowel distention, likely adynamic ileus given recent thoracolumbar fusion. Small volume ascites. Body wall edema/anasarca. Dictated By: Tomy Donnelly MD Signed By: 09/30/182117 Tomy Donnelly MD Exam - Vitals Vital Signs: Vital Signs Temperature 97.8 F Temperature Source Oral Pulse Rate [Apical] 110 Pulse Rate [Pulse Oximeter] 104 Pulse Rate 98 Respiratory Rate 20 Blood Pressure [Right Arm] 149/79 Blood Pressure 136/62 Pulse Ox 94 Oxygen Flow Rate 3 Oxygen Delivery Method Nasal Cannula Height 6 ft Weight 285 lb 3.2 oz Patient Problems - Patient Problem List (1) Ileus, postoperative Current Visit: Yes Status: Acute Code(s): K91.89 - Other postprocedural complications and disorders of digestive system; K56.7 - Ileus, unspecified Category: Medical (2) Fluid overload Current Visit: Yes Status: Acute Code(s): E87.70 - Fluid overload, unspecified Qualifiers: Hypervolemia type: other Qualified Code(s): E87.79 - Other fluid overload Category: Medical (3) History of pulmonary embolus (PE) Current Visit: Yes Status: Chronic Code(s): Z86.711 - Personal history of pulmonary embolism Category: Medical (4) Chest pain Current Visit: Yes Status: Resolved Code(s): R07.9 - Chest pain, unspecified Qualifiers: Chest pain type: intercostal pain Qualified Code(s): R07.82 - Intercostal pain Category: Medical (5) Hypertension Current Visit: Yes Status: Acute Code(s): I10 - Essential (primary) hyperten alek Qualifiers: Hypertension type: essential hypertension Qualified Code(s): I10 - Essential (primary) hypertension Category: Medical (6) Hypercholesterolemia Current Visit: Yes Status: Acute Code(s): E78.00 - Pure h ypercholesterolemia, unspecified Category: Medical (7) Postoperative confusion Current Visit: Yes Status: Resolved Code(s): R41.0 - Disorientation, unspecified Category: Medical (8) Adynamic ileus Current Visit: Yes Status: Acute Code(s): K56.0 - Paralytic ileus Category: Medical
--- NOTE | 2018-10-01 10:50 | PT AM DAY ---
Diagnosis : Lumbar Fusion AM - Physical Therapy S: The patient's states he is in a lot of pain and the patient reports he doesn't feel like doing anything. O: Following extensive verbal encouragement and educating the patient that he will not be cleared from physical therapy until he is able to get in and out of bed by himself, don and doff and adjust his back brace, go up and down four steps using a walker, and ambulate up to 100 feet, he will not be cleared by physical therapy. Following this, the patient was willing to participate. He was able to perform bed mobility with stand by assistance and verbal cues; however, he required moderate assistance for his back brace. He was brought downstairs to the physical therapy gym where he ambulated 5 feet x1 followed by 50 feet x1 with walker, gait belt, contact guard assistance, and front wheeled walker. He also performed toileting ADLs with stand by assistance secondary to concerns with safety awareness and balance. He also participated in 8 minutes of arm bike and sit to stand activities. A: Our biggest limitation at this time is the patient's motivation to participate with therapy. However, upon clarifying what is needed to be met physically by therapy in order to be cleared for discharge, the patient demonstrated verbal understanding and was able to ambulate. P: Continue seeing patient BID during the week and one time per day over the weekend for transfers, ambulation, and range of motion/strengthening exercises. SHILPI
--- NOTE | 2018-10-01 11:01 | PT AM DAY ---
Diagnosis : Lumbar Fusion AM - Physical Therapy S: The patient's states that her is not going to participate in physical therapy due to the application of the NG tube. 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 The therapist did discuss again with the patient what is needed for him to go home. O: The patient was educated on bilateral lower extremity heel slides, quad sets, glut sets, transverse abdominis engagement, and ankle pumps. The patient was able to demonstrate return demonstration with all activities. A: The patient has verbal understanding of what is required of him to be cleared by physical therapy in order to go home. P: Continue seeing patient BID during the week and one time per day over the weekend for transfers, ambulation, and range of motion/strengthening exercises. MTDD
== END 2018-09-30 23:03 | disposition short-term general hospital (02) | DRG 457 ==
LOC: OPS 05:46 → MED/SURG 21:11
PROVIDERS: ADMIT Neurological Surgery; ATTEND Family Medicine